=== PATIENT | female | born 1950 | race Caucasian/White ===

== ENCOUNTER 2019-03-21 10:23 | Outpatient (CLI) | payer BC ==
--- NOTE | 2019-03-29 16:20 | MMO ---
Bilateral MAMMO Bilat Screen DDI. CLINICAL HISTORY: Patient is 68 years old and is seen for screening. The patient has no family history of breast cancer. The patient has a history of Skin cancer. VIEWS: The views performed were: bilateral craniocaudal and bilateral mediolateral oblique. FILMS COMPARED: The present examination has been compared to a prior imaging study performed at [facility] on 03/16/2017. This study has been interpreted with the assistance of computer-aided detection. MAMMOGRAM FINDINGS: There are scattered fibroglandular densities. There are stable benign appearing calcifications seen in both breasts. There are also vascular calcifications. There are no suspicious masses, suspicious calcifications, or new areas of architectural distortion. IMPRESSION: THERE IS NO MAMMOGRAPHIC EVIDENCE OF MALIGNANCY. A ROUTINE FOLLOW-UP MAMMOGRAM IN 1 YEAR IS RECOMMENDED. ACR BI-RADS Category 2 - Benign finding MAMMOGRAPHY NOTE: 1. A negative mammogram report should not delay a biopsy if a dominant of clinically suspicious mass is present. 2. Approximately 10% to 15% of breast cancers are not detected by mammography. 3. Adenosis and dense breasts may obscure an underlying neoplasm.
== END 2019-03-21 10:24 | disposition home or self-care (01) ==
LOC: SCSMAMMO 10:23
PROVIDERS: ATTEND Physician Assistant
DX: Z12.31 Encounter for screening mammogram for malignant neoplasm of breast (principal); Z85.828 Personal history of other malignant neoplasm of skin
CPT/HCPCS: 77067

== ENCOUNTER 2019-05-04 09:12 | Outpatient (CLI) | payer BC ==
--- NOTE | 2019-05-04 09:56 | RAD ---
Lumbar spine 2 views HISTORY: Low back pain. FINDINGS: 5 lumbar type vertebrae. Partial sacralization of the fifth lumbar segment mild chronic richy earing decompression of the L3 superior endplate. Disc space narrowing at the L2-3 and L4-5 levels. Grade 1 spondylolisthesis at the L4-5 level. Prominent osteophytosis throughout the lower facets. Rig htward convex rotatory scoliotic curvature on the frontal view. No acute fracture or dislocation. Calcification over the lower abdominal aorta on the lateral view. IMPRESSION: Prominent osseous degenerative changes lumbar spine. No acute osseous abnormalities are d emonstrated. Mild chronic-appearing compression of the L3 superior endplate. Atherosclerosis.
--- NOTE | 2019-05-04 09:57 | RAD ---
Left hip 2 views HISTORY: Left hip pain. FINDINGS: There is mild joint space narrowing, osteophytosis, and subchondral sclerosis. Femoral head contour is maintained. No acute fracture, dislocation, or aggressive osseous erosions. IMPRESSION: Mild osteoarthritic changes left hip. No acute osseous abnormalities are demonstrated.
--- NOTE | 2019-05-04 10:31 | BD ---
DEXA BONE DENSITY STUDY: Date: 05/04/19 COMPARISON: None. HISTORY: 68-year-old postmenopausal female for screening for osteoporosis. FINDINGS: Lumbar Spine: BMD (g/cm2) L1 0.958 T-Score: -0.3 L2 1.046 T-Score: 0.2 L3 1.091 T-Score: 0.1 L4 1.172 T-Score: 1.0 L1-L4 1.065 T-Score: 0.2 Femoral Neck: 0.644 T-Score: -1.8 Total Femur: 0.737 T-Score: -1.7 IMPRESSION: Osteopenia. POS: CET
== END 2019-05-04 09:13 | disposition home or self-care (01) ==
LOC: BICMAMMO 09:12
PROVIDERS: ATTEND Internal Medicine
DX: Z13.820 Encounter for screening for osteoporosis (principal); M51.36 Other intervertebral disc degeneration, lumbar region; M25.552 Pain in left hip; M16.12 Unilateral primary osteoarthritis, left hip; I70.90 Unspecified atherosclerosis; M85.89 Other specified disorders of bone density and structure, multiple sites
CPT/HCPCS: 72100; 77080

== ENCOUNTER 2020-03-25 04:15 | Emergency (ER) | payer BC ==
[2020-03-25] MEDS ORDERED: Ondansetron PF 4 MG/2 ML Vial ONE ×2 (04:25→05:58)
[2020-03-25 04:58] LABS: #Lymphocytes 0.8 thou/uL (1.20-3.40); #Monocytes 0.6 thou/uL (0.11-0.59); #Neutrophils 8.1 thou/uL (1.40-6.50); %Basophils 0.1 % (0.0-1.0); %Eosinophils 0.2 % (0.0-10.0); %Lymphocytes 8.2 % (21.0-51.0); %Neutrophils 85.6 % (42.0-75.0); Hemoglobin 12.1 g/dL (12.0-16.0); Mean Corpuscular HGB CONC 32.9 g/dL (32.0-36.0); Mean Corpuscular Hemoglobin 30.4 pg (27.0-31.0); Mean Corpuscular Volume 92.3 fL (78.0-98.0); Mean Platelet Volume 7.7 fL (7.4-10.4); Platelet Count 190 thou/uL (130-400); RBC Distribution Width 12.2 % (11.5-14.5); Red Blood Cell (RBC) Count 3.99 mill/uL (4.20-5.40); White Blood Cell (WBC) Count 9.5 thou/uL (4.8-10.8)
[2020-03-25 05:19] LABS: ALT (SGPT) 10 U/L (8-55); AST (SGOT) 13 U/L (5-34); Albumin 3.7 g/dL (3.4-4.8); Alkaline Phosphatase 99 U/L (40-110); Anion Gap 16 mmol/L (10-20); BUN (Urea Nitrogen) 17 mg/dL (9.8-20.1); Bilirubin, Total 0.7 mg/dL (0.2-1.2); Calc. Creatinine Clearance 0 mL/min (70-130); Calcium 8.2 mg/dL (7.8-10.44); Carbon Dioxide 22 mmol/L (23-31); Chloride 99 mmol/L (98-107); Estimated GFR-MDRD 51; Globulin 2.9 g/dL (2.4-3.5); Glucose 123 mg/dL (80-115); Lipase 10 U/L (8-78); Protein, Total 6.6 g/dL (6.0-8.3); Sodium 134 mmol/L (136-145)
[2020-03-25 05:24] LABS: Potassium 2.9 mmol/L (3.5-5.1)
[2020-03-25] MEDS ORDERED: Pot Chloride/Pot Bicarb/Cit Ac 25 mEq Effervescent Tablet ONE (05:25)
--- NOTE | 2020-03-25 07:29 | CT ---
CT ABDOMEN AND PELVIS WITH CONTRAST: Date: 03/25/2020 COMPARISON: None. HISTORY: Nausea, vomiting, and diarrhea for 1-1/2 days after eating at [employer]. TECHNIQUE: Multiple contiguous axial images were obtained in a CT of the abdomen and pelvis with contrast. Sagit lazaro and coronal reformats were performed. FINDINGS: The gallbladder is distended without surrounding stranding changes or calcified gallstones. The liver , kidneys, adrenal glands, spleen, and pancreas are unremarkable. No free air, free fluid, or strandi ng changes are seen in the abdomen or pelvis. The patient is status post hysterectomy. The large and small bowel are unremarkable. The appendix is normal. No abdominal or pelvic lymphadenopathy seen. Degenerative changes are seen in the spine. The visualiz ed inferior thorax and abdominal wall soft tissues are unremarkable. IMPRESSION: There is distention of the gallbladder, which may be secondary to a fasting state. Alternatively, the patient could have cholesterol gallstones which are not calcified. If clinically indicated, a right upper quadrant abdominal ultrasound may be necessary to evaluate the gallbladder. No other acute intr a-abdominal/pelvic abnormality is identified. POS: EAA
[2020-03-25] MEDS ORDERED: Iopamidol 370 76% 100 ML VIAL ONE (15:12)
== END 2020-03-25 06:45 | disposition home or self-care (01) ==
LOC: ERS 04:15
DX: R11.2 Nausea with vomiting, unspecified (principal); R19.7 Diarrhea, unspecified; E87.6 Hypokalemia; I10 Essential (primary) hypertension; F32.9 Major depressive disorder, single episode, unspecified; Z79.899 Other long term (current) drug therapy
CPT/HCPCS: 36415; 74177; 80053; 83690; 85025; 96361; 96374; 96376; J2405; Q9967

== ENCOUNTER 2020-03-28 09:31 | Inpatient (IN) | payer BC, OTHER ==
[2020-03-28 10:08] LABS: #Eosinphils 0.1 thou/uL (0.0-0.7); #Lymphocytes 1.1 thou/uL (1.20-3.40); #Monocytes 0.8 thou/uL (0.11-0.59); %Basophils 0.6 % (0.0-1.0); %Eosinophils 1.1 % (0.0-10.0); %Lymphocytes 15.4 % (21.0-51.0); %Monocytes 11.2 % (0.0-10.0); %Neutrophils 71.7 % (42.0-75.0); Hemoglobin 13.7 g/dL (12.0-16.0); Mean Corpuscular HGB CONC 33.3 g/dL (32.0-36.0); Mean Corpuscular Hemoglobin 29.7 pg (27.0-31.0); Mean Corpuscular Volume 89.2 fL (78.0-98.0); Mean Platelet Volume 7.5 fL (7.4-10.4); Platelet Count 280 thou/uL (130-400); RBC Distribution Width 11.9 % (11.5-14.5); Red Blood Cell (RBC) Count 4.61 mill/uL (4.20-5.40)
--- NOTE | 2020-03-28 10:15 | RAD ---
Exam: Chest one view HISTORY:Recent history of nausea and vomiting. Comparison: None FINDINGS: Cardiac silhouette: Normal Aorta: Unremarkable Pulmonary vessels: Normal Costophrenic angles: Clear LUNGS: No masses or consolidation. Pneumothorax: None Osseous abnormalities: None IMPRESSION: No acute cardiopulmonary process.
[2020-03-28 10:30] LABS: ALT (SGPT) 17 U/L (8-55); AST (SGOT) 24 U/L (5-34); Albumin 3.9 g/dL (3.4-4.8); Alkaline Phosphatase 98 U/L (40-110); Anion Gap 19 mmol/L (10-20); BUN (Urea Nitrogen) 8 mg/dL (9.8-20.1); Bilirubin, Total 0.3 mg/dL (0.2-1.2); CK (CPK) 34 U/L (29-168); Calc. Creatinine Clearance 0 mL/min (70-130); Calcium 8.8 mg/dL (7.8-10.44); Carbon Dioxide 23 mmol/L (23-31); Chloride 91 mmol/L (98-107); Estimated GFR-MDRD 76; Globulin 3.2 g/dL (2.4-3.5); Glucose 63 mg/dL (80-115); Lipase 141 U/L (8-78); Magnesium 1.8 mg/dL (1.6-2.6); Protein, Total 7.1 g/dL (6.0-8.3); Sodium 130 mmol/L (136-145)
[2020-03-28 10:32] LABS: Potassium 2.7 mmol/L (3.5-5.1)
[2020-03-28] MEDS ORDERED: Ondansetron PF 4 MG/2 ML Vial ONE (10:50)
[2020-03-28] MEDS ORDERED: Magnesium 2 GM/50 ML BAG (IN WATER) ONE (10:50)
[2020-03-28] MEDS ORDERED: Loperamide HCl 2 MG CAP ONE (10:50)
[2020-03-28] MEDS ORDERED: Acetaminophen 650 MG Suppository PR PRN (11:36)
[2020-03-28] MEDS ORDERED: Calcium Carbonate 500 MG ChewTAB PO PRN (11:36)
[2020-03-28] MEDS ORDERED: Promethazine HCl 25 MG in Sodium Chloride 0.9% 50 ML IVPB PRN (11:42)
[2020-03-28] MEDS ORDERED: Labetalol HCl 100 MG/20 ML VIAL SLOW IVP PRN (11:42)
[2020-03-28] MEDS ORDERED: Potassium Phosphate 30 MMOL in Sodium Chloride 0.9% 250 ML 250 ML IVPB SCH (11:45)
--- NOTE | 2020-03-28 12:41 | PDOC.HHP ---
Hospitalist HPI - History of Present Illness N/V/D x 1 week History of Present Illness: PCP: Vinicio The patient is a 69/F with PMH significant for hypothyroidism, GERD and depression that presents to the ER for the above complaint. The patient reports feeling nauseated with vomiting and diarrhea for the past week. The patient was seen in the ER 3 days ago, CT abdomen was negative for any acute process. She did have hypokalemia, which was replaced and she was discharged home with prescriptions for zofran and lomotil. Reports little improvement of her symptoms, saying "I couldn't hold anything down". She went to see her doctor this morning and was found to have electrolyte abnormalities and was sent to the ER . Reports that her daughter travels frequently for her job, however, admits she has not traveled in past 1- 2 months. She denies any recent travel or hospitalizations. Denies any recent antibiotics or ingestion of uncooked foods. She denies any fever or chills for the past 5 days. Denies any chest pain or heart palpitations. She denies any blood in her stools. Denies any dysuria or blood in urine. ED Course: EKG SR with prolong QT 515 CXR negative WBC 7.0 Na 130 K 2.7 Mg 1.8 lipase 141 Given: 1L NS 40mEq IV and 40mEQ po potassium Mag 2gm IV zofran and loperamide Allergies: NKDA Home medications: Unable to reconcile at bedside with patient Hospitalist ROS - Review of Systems Constitutional: denies: fever, chills Eyes: denies: pain, vision change, conjunctivae inflammation, eyelid inflammation, redness, other ENT: denies: ear pain, ear discharge, nose pain, nose discharge, nose congestion , mouth pain, mouth swelling, throat pain, throat swelling, other Respiratory: denies: cough, dry, shortness of breath, hemoptysis, SOB with excertion, pleuritic pain, sputum, wheezing, other Cardiovascular: denies: chest pain, palpitations, orthopnea, paroxysmal noc. dyspnea, edema, light headedness, other Gastrointestinal: reports: nausea, vomiting, diarrhea. denies: melena, hematochezia Genitourinary: denies: dysuria, frequency, incontinence, hematuria, retention, other Skin: denies: rash, lesions, kevin, bruising, other Neurological: denies: weakness, numbness, incoordination, change in speech, confusion, seizures, other Hospitalist History - Past Medical History Cardiac: reports: Hyperlipidemia Gastrointestinal: reports: GERD Psych: reports: Depression Endocrine: reports: Hypothyroidism - Past Surgical History Past Surgical History: reports: Hysterectomy, Total Knee Replacement, Other ( cervical spine fusion) - Family History Other Family History: non contributory to this case - Social History Smoking Status: Never smoker Alcohol: reports: Occassional Drugs: reports: none Living Situation: With Family Occupation: Lives with family at home, retired Activity level: independent ambulation - Exam General - other findings: uncomfortable, non toxic appearing Eye: anicteric sclera ENT: normocephalic atraumatic Neck: supple, no JVD Heart: RRR, no murmur, no gallops, no rubs, normal peripheral pulses Respiratory: CTAB, no wheezes, no rales, no ronchi, no tachypnea Gastrointestinal: soft, non-tender, normal bowel sounds, no guarding, no rigidity Extremities: no cyanosis, no edema Skin: no lesions, no rashes Neurological: no focal deficits Psychiatric: normal affect, A&O x 3 Hospitalist Results - Labs Result Diagrams: 03/28/20 09:57 03/28/20 09:57 Lab results: WBC 7.0 thou/uL (4.8-10.8) 03/28/20 09:57 Hgb 13.7 g/dL (12.0-16.0) 03/28/20 09:57 Hct 41.1 % (36.0-47.0) 03/28/20 09:57 MCV 89.2 fL (78.0-98.0) 03/28/20 09:57 Plt Count 280 thou/uL (130-400) 03/28/20 09:57 Neutrophils % 71.7 % (42.0-75.0) 03/28/20 09:57 Sodium 130 mmol/L (136-145) L 03/28/20 09:57 Potassium 2.7 mmol/L (3.5-5.1) L* 03/28/20 09:57 Chloride 91 mmol/L (98-107) L 03/28/20 09:57 Carbon Dioxide 23 mmol/L (23-31) 03/28/20 09:57 BUN 8 mg/dL (9.8-20.1) L 03/28/20 09:57 Creatinine 0.76 mg/dL (0.6-1.1) 03/28/20 09:57 Glucose 63 mg/dL (80-115) L 03/28/20 09:57 Calcium 8.8 mg/dL (7.8-10.44) 03/28/20 09:57 Total Bilirubin 0.3 mg/dL (0.2-1.2) 03/28/20 09:57 AST 24 U/L (5-34) 03/28/20 09:57 ALT 17 U/L (8-55) 03/28/20 09:57 Alkaline Phosphatase 98 U/L (40-110) 03/28/20 09:57 Creatine Kinase 34 U/L (29-168) 03/28/20 09:57 Serum Total Protein 7.1 g/dL (6.0-8.3) 03/28/20 09:57 Albumin 3.9 g/dL (3.4-4.8) 03/28/20 09:57 Lipase 141 U/L (8-78) H 03/28/20 09:57 - EKG Interpretation EKG: NSR, prolong QT interval 515 - Radiology Interpretation Chest x-ray Status: report reviewed by nj Hospitalist H&P A/P - Problem (1) Gastroenteritis Code(s): K52.9 - NONINFECTIVE GASTROENTERITIS AND COLITIS, UNSPECIFIED Status : Acute Assessment and Plan: Admit to telemetry floor, observation status. Expected length of stay less than 2 midnights Patient appears uncomfortable, non toxic with benign abdomen on exam Unclear etiology at this time Na 130, K 2.7, Mg 1.8, Glu 63, lipase 131 CT abdomen 2 days prior negative for acute process EKG prolong QT 515 Send stool studies Will start IVF with Dextrose Replace electrolytes Start phenergan scheduled patient monitor Enteric contact precautions (2) Hypokalemia Code(s): E87.6 - HYPOKALEMIA Status: Acute Assessment and Plan: K 2.7 Will replace and recheck in am (3) Low magnesium level Code(s): R79.0 - ABNORMAL LEVEL OF BLOOD MINERAL Status: Acute Assessment and Plan: Relative low magnesium, 1.8 Received 2gm IVPB in ER Will recheck in am (4) Suspected COVID-19 virus infection Code(s): Z20.828 - CONTACT W AND EXPOSURE TO OTH VIRAL COMMUNICABLE DISEASES Status: Acute Assessment and Plan: WBCs WNL, CXR no acute process COVID test pending Check acute phase reactants - CRP, DD and Ferritin, LDH, levels Droplet precautions (5) Hypoglycemia Code(s): E16.2 - HYPOGLYCEMIA, UNSPECIFIED Status: Acute Assessment and Plan: BS 63 Will start D5NS IVF hydration (6) Hypothyroidism Code(s): E03.9 - HYPOTHYROIDISM, UNSPECIFIED Status: Chronic Assessment and Plan: Will restart home levothyroxine when reconciled by nursing (7) Depression Code(s): F32.9 - MAJOR DEPRESSIVE DISORDER, SINGLE EPISODE, UNSPECIFIED Status : Acute Assessment and Plan: stable, will restart home meds when reconciled by nursing. - Plan Plan: Pepcid GI prophylaxis Heparin DVT prophylaxis Full Code MARILYN is spouse, Rafat at [phone] Nunes
[2020-03-28 12:57] LABS: Troponin I Less than 0.010 ng/mL (< 0.028)
[2020-03-28] MEDS: D5 NS w/ 40 mEq KCl 1,000 ML IV SCH (14:28)
[2020-03-28] MEDS: Potassium Chloride 20 MEQ in Premix Bag 1 BAG IVPB SCH ×2 (14:29→16:56)
[2020-03-28 19:40] LABS: SARS-CoV-2 MS2 Positive; SARS-CoV-2 N Gene Negative; SARS-CoV-2 S Gene Negative; SARS-CoV-2 orf1ab Negative
[2020-03-28] MEDS: Heparin 5,000 UNITS/ML VIAL SC SCH (21:51)
[2020-03-28] MEDS: Saccharomyces boulardii 250 MG CAP PO SCH (21:51)
[2020-03-28] MEDS: Famotidine 20 MG TAB PO SCH (21:51)
[2020-03-28] MEDS: Famotidine/PF 20 mg/2ml Vial SLOW IVP SCH (21:51)
[2020-03-29] MEDS: D5 NS w/ 40 mEq KCl 1,000 ML IV SCH ×4 (00:20→17:55)
[2020-03-29] MEDS: ALPRAZolam 0.5 MG TAB PO PRN ×2 (00:27→18:05)
[2020-03-29 05:21] LABS: ALT (SGPT) 11 U/L (8-55); AST (SGOT) 14 U/L (5-34); Albumin 3.2 g/dL (3.4-4.8); Alkaline Phosphatase 74 U/L (40-110); Anion Gap 11 mmol/L (10-20); BUN (Urea Nitrogen) Less than 4 mg/dL (9.8-20.1); Bilirubin, Total 0.2 mg/dL (0.2-1.2); Calc. Creatinine Clearance 85 mL/min (70-130); Calcium 7.9 mg/dL (7.8-10.44); Carbon Dioxide 23 mmol/L (23-31); Chloride 101 mmol/L (98-107); Estimated GFR-MDRD Greater than 90; Globulin 2.5 g/dL (2.4-3.5); Glucose 193 mg/dL (80-115); Lipase 281 U/L (8-78); Magnesium 1.8 mg/dL (1.6-2.6); Potassium 3.7 mmol/L (3.5-5.1); Protein, Total 5.7 g/dL (6.0-8.3); Sodium 131 mmol/L (136-145)
[2020-03-29 05:38] LABS: Phosphorus 1.6 mg/dL (2.3-4.7)
[2020-03-29 06:15] LABS: Band 11 % (5-11); Eosinophils 3 % (0-10); Hemoglobin 11.6 g/dL (12.0-16.0); Lymphocytes 23 % (21-51); MDiff Complete? YES; Mean Corpuscular HGB CONC 33.1 g/dL (32.0-36.0); Mean Corpuscular Hemoglobin 29.5 pg (27.0-31.0); Mean Corpuscular Volume 89.2 fL (78.0-98.0); Mean Platelet Volume 7.3 fL (7.4-10.4); Monocytes 14 % (0-10); Neutrophil 49 % (42-75); Platelet Count 223 thou/uL (130-400); RBC Distribution Width 12.1 % (11.5-14.5); Red Blood Cell (RBC) Count 3.93 mill/uL (4.20-5.40); White Blood Cell (WBC) Count 5.5 thou/uL (4.8-10.8)
[2020-03-29] MEDS ORDERED: Potassium Phosphate 30 MMOL in Sodium Chloride 0.9% 500 ML IVPB SCH (07:30)
[2020-03-29] MEDS: Famotidine 20 MG TAB PO SCH (09:42)
[2020-03-29] MEDS: Heparin 5,000 UNITS/ML VIAL SC SCH ×2 (09:42→20:59)
[2020-03-29] MEDS: Famotidine/PF 20 mg/2ml Vial SLOW IVP SCH (09:43)
[2020-03-29] MEDS: Ondansetron ODT 4 MG TAB PO PRN ×2 (10:48→21:05)
[2020-03-29] MEDS ORDERED: PARoxetine 20 MG TAB PO SCH (11:30)
[2020-03-29] MEDS ORDERED: Bupropion 150 MG XL TAB PO SCH (11:30)
[2020-03-29] MEDS: Loperamide HCl 2 MG CAP PO PRN ×2 (13:23→20:57)
--- NOTE | 2020-03-29 13:23 | PDOC.HOSPP ---
- Subjective Encounter Date: 03/29/20 Encounter Time: 10:45 Subjective: Patient seen and examined for N/V/D with gen weakness. Nausea/Abd pain improving. Still has significant diarrhea. No fever/chills. No overnight events - Objective Vital Signs & Weight: Vital Signs (12 hours) Temp Pulse Resp BP Pulse Ox 03/29/20 11:43 97.7 F 80 16 133/75 98 03/29/20 09:30 97.6 F 81 18 140/82 96 03/29/20 04:03 98 F 80 18 121/79 98 Weight Weight 137 lb I&O: 03/28/20 03/29/20 03/30/20 06:59 06:59 06:59 Intake Total 2309 1120 Output Total 3 4 Balance 2306 1116 Result Diagrams: 03/29/20 04:45 03/29/20 04:45 Additional Labs: Laboratory Tests 03/28/20 03/28/20 03/28/20 09:57 11:50 12:27 Sodium 130 L Potassium 2.7 L* Chloride 91 L Ferritin Lactate Dehydrogenase Troponin I Less than 0.010 C-Reactive Protein COVID-19 PCR Not Detected 03/28/20 03/28/20 03/28/20 12:27 12:27 12:27 Sodium Potassium Chloride Ferritin 180.84 Lactate Dehydrogenase 203 Troponin I C-Reactive Protein 7.62 H COVID-19 PCR Microbiology 03/29/20 01:06 Stool Stool Lactoferrin - Final 03/29/20 01:06 Stool Shiga Toxin Test - Final 03/29/20 01:06 Stool Escherichia coli 0157 Culture - Final 03/29/20 01:06 Stool C. difficile GDH Antigen & Toxins - Final 03/29/20 01:06 Stool Stool Culture - Preliminary Radiology Reviewed by me: Yes (CXR - reviewed) EKG Reviewed by me: Yes (Tele SR - QT ok) Hospitalist ROS - Review of Systems Respiratory: denies: cough, dry, shortness of breath, hemoptysis, SOB with excertion, pleuritic pain, sputum, wheezing, other Cardiovascular: denies: chest pain, palpitations, orthopnea, paroxysmal noc. dyspnea, edema, light headedness, other - Medication Medications: Active Medications Generic Name Dose Route Start Last Admin Trade Name Freq PRN Reason Stop Dose Admin Alprazolam 0.5 mg 03/29/20 00:16 03/29/20 00:27 Xanax PO 0.5 mg BIDPRN PRN Administration Anxiety Calcium Carbonate 1,000 mg 03/28/20 11:36 03/29/20 00:20 Tums PO 1,000 mg Q4H PRN Administration Heartburn or Indigestion Heparin Sodium (Porcine) 5,000 units 03/28/20 21:00 03/29/20 09:42 Heparin SC 5,000 units BID RENZO Administration Potassium Chloride/Dextrose/Sod Cl 1,000 mls @ 125 mls/hr 03/28/20 11:45 10:48 D5 Ns W/ 40 Meq Kcl IV 1,000 mls .Q8H RENZO Administration Potassium Phosphate 30 mmol/ 510 mls @ 85 mls/hr 03/29/20 07:30 03/29/20 09: 42 Sodium Chloride IVPB 03/29/20 13:30 510 mls NOW RENZO Administration Ondansetron HCl 4 mg 03/29/20 10:18 03/29/20 10:48 Zofran Odt PO 4 mg Q6H PRN Administration Nausea/Vomiting Saccharomyces Boulardii 250 mg 03/28/20 21:00 03/28/20 21:51 Florastor PO 250 mg HS RENZO Administration - Exam General Appearance: ill appearing Neck: supple, no JVD Heart: RRR, no gallops Respiratory: no wheezes, no rales Gastrointestinal: soft, non-tender, normal bowel sounds, no guarding, no rigidity Extremities: no cyanosis, no clubbing, no edema Neurological: no new deficit Psychiatric: normal affect, A&O x 3 Hosp A/P - Plan DVT proph w/heparin, DVT proph w/SCDs Acute infective gastroenteritis N/V/D/Abd pain/dehydration/gen weakness - due to above Hypokalemia/Hypophosphatemia/Hyponatremia/Hypomagnesemia Hypoglycemia Hypothyroidism Anxiety PLAN: Cdiff ruled out Stool - WBC positive Cont current IVF with Potassium Replace Phosphorus AM labs Consult GI due to persistent diarrhea COVID negative I discussed case with GI and ID Resume selected home meds
--- NOTE | 2020-03-29 20:00 | CON ---
DATE OF CONSULTATION: 03/29/2020 REQUESTING PHYSICIAN: Dr. Nunes. REASON FOR CONSULTATION: Persistent diarrhea. HISTORY OF PRESENT ILLNESS: Samina May is a very pleasant 69-year-old woman with a history of depression and hypothyroidism as well as a past surgical history of knee replacement and hysterectomy. She reports having undergone colonoscopy in the past multiple times, the last one 3-5 years ago, with benign polyps removed. She has had upper endoscopy in the past with no significant findings. She takes lansoprazole daily for some heartburn, but aside from that, she has no chronic gastrointestinal symptoms. She does not normally have any abdominal pain or diarrhea. Six days ago, she recalls eating breakfast at [facility] and having an omelet that tasted a bit funny; that night, she had a fairly acute onset of cramping generalized abdominal pain followed by profuse watery diarrhea. This progressed to nausea and multiple episodes of emesis and was quite severe for a couple of days. She presented to the emergency department and had a couple of liters of IV fluid, but was felt safe to go home. Over the next several days, she continued to have significant symptoms of intermittent vomiting and watery, uncontrollable diarrhea. The diarrhea has been nonbloody. She was managing it with Zofran and Lomotil p.r.n., but as of yesterday, she was feeling increasingly weak and so presented again for evaluation. She was found to be hypokalemic with potassium 2.7 and so she was admitted to the hospital. Overnight, she has received IV fluid resuscitation, electrolytes have been corrected. She tells me that over the past couple of days, the nausea and vomiting have significantly improved. She is not having any significant abdominal pain at this time, but the diarrhea has persisted. She has had several very watery urgent bowel movements so far today. She does not really have much of an appetite, though she has been tolerating clear liquids today. Stool studies are showing elevated fecal lactoferrin, but are otherwise negative for pathogens to this point. Labs do show an elevation of C-reactive protein, but are otherwise essentially unrevealing, and a CT of the abdomen and pelvis performed on presentation four days ago, was normal. There has been no fever or chest pain with this. COVID testing was negative. REVIEW OF SYSTEMS: Full review of systems including constitutional, head, eyes, ears, nose, throat, GI, , cardiovascular, respiratory, musculoskeletal, neurologic systems are negative except as noted in the HPI. PAST MEDICAL HISTORY: Hypothyroidism, depression, chronic heartburn, total knee replacement, and hysterectomy. ALLERGIES: NO KNOWN DRUG ALLERGIES. OUTPATIENT MEDICATIONS: 1. Potassium chloride 10 mEq daily. 2. Paroxetine. 3. Lansoprazole 30 mg daily. 4. Synthroid. 5. Lasix 20 mg daily. 6. Lipitor. 7. Xanax p.r.n. 8. Bupropion. 9. Lomotil p.r.n. SOCIAL HISTORY: Alcohol use is occasional. No smoking or drug use. Her , Rafat is an Internal Medicine physician, I spoke with him on the phone, his phone #[phone]. FAMILY HISTORY: Negative for GI illness or malignancy. PHYSICAL EXAMINATION: VITAL SIGNS: Temperature 97.7, pulse 80, blood pressure 133/75, and 98% oxygen saturation on room air. GENERAL: A 69-year-old woman, lying in bed comfortably, in no acute distress. She is nontoxic appearing. SKIN: No jaundice. No rashes were palpable. HEENT: Eyes, no scleral icterus. Extraocular movements intact. ENT, mucous membranes moist. No oral lesions. LYMPH: No submandibular or supraclavicular lymphadenopathy. THYROID: Nontender to palpation. HEART: Regular rate and rhythm. LUNGS: Clear to auscultation bilaterally. ABDOMEN: Bowel sounds are present. Soft and nontender to palpation throughout. EXTREMITIES: No peripheral edema. VESSELS: Radial pulses 2+ bilaterally. NEUROLOGIC: Cranial nerves 2 through 12 intact bilaterally. No focal deficits. LABORATORY STUDIES: WBC 5.5, hemoglobin 11.6, platelets 223, MCV 89. Sodium 131, potassium 3.7, BUN less than 4, creatinine 0.63, glucose 193. CRP is elevated to 7.62. Lipase is 281. Troponin negative. Total bilirubin 0.2. Alkaline phosphatase 74, AST 14, ALT 11, and albumin 3.2. COVID PCR was negative. Stool studies show elevated fecal lactoferrin, but stool culture shows only normal moreno. Clostridium difficile antigen and toxin are negative. Campylobacter, Shiga toxin, Cryptosporidium, and Giardia all negative. ASSESSMENT AND PLAN: 1. Acute gastroenteritis, likely infectious, with persistent symptoms x6 days. 2. Diarrhea, persistent for six days. 3. Nausea and vomiting, recently improved. 4. Dehydration, improved today after resuscitation and electrolyte correction. I had a long discussion with the patient as well as her over the phone. Overall, the patient's presentation still seems most consistent with an acute infectious gastroenteritis, particularly given the patient has no history of any chronic GI symptoms at all, the acuity and severity of the onset. Stool studies have been negative for the aforementioned pathogens, but overall I still lean toward an acute infectious process. Less likely, this might represent the onset of inflammatory bowel disease, but with only six days of symptoms so far, the utility of any diagnostic endoscopy would be limited. I would favor continued supportive care as you are doing, IV fluids, antidiarrheals, and antiemetics as needed, and try to advance her diet as tolerated over the next few days. If there is no significant improvement over the next few days, we could always reconsider diagnostic endoscopy. Regardless, she can follow up in the GI Clinic in the coming weeks to discuss surveillance colonoscopy and ensure resolution of symptoms. Thank you for the consultation. Please call at any time with questions or concerns. Job ID: [id number]
[2020-03-29] MEDS: Saccharomyces boulardii 250 MG CAP PO SCH (20:58)
[2020-03-30] MEDS: D5 NS w/ 40 mEq KCl 1,000 ML IV SCH ×3 (04:33→11:23)
[2020-03-30] MEDS: Levothyroxine Sodium 88 MCG TAB PO SCH (06:35)
[2020-03-30 06:45] LABS: Hemoglobin 11.6 g/dL (12.0-16.0); Mean Corpuscular HGB CONC 32.9 g/dL (32.0-36.0); Mean Corpuscular Hemoglobin 29.8 pg (27.0-31.0); Mean Corpuscular Volume 90.6 fL (78.0-98.0); Mean Platelet Volume 7.4 fL (7.4-10.4); Platelet Count 238 thou/uL (130-400); RBC Distribution Width 12.3 % (11.5-14.5); Red Blood Cell (RBC) Count 3.88 mill/uL (4.20-5.40)
[2020-03-30 06:47] LABS: ALT (SGPT) 14 U/L (8-55); AST (SGOT) 16 U/L (5-34); Albumin 3.1 g/dL (3.4-4.8); Alkaline Phosphatase 76 U/L (40-110); Anion Gap 11 mmol/L (10-20); BUN (Urea Nitrogen) Less than 4 mg/dL (9.8-20.1); Bilirubin, Total 0.2 mg/dL (0.2-1.2); Calc. Creatinine Clearance 90 mL/min (70-130); Calcium 8.1 mg/dL (7.8-10.44); Carbon Dioxide 22 mmol/L (23-31); Chloride 104 mmol/L (98-107); Estimated GFR-MDRD Greater than 90; Globulin 2.5 g/dL (2.4-3.5); Glucose 107 mg/dL (80-115); Magnesium 1.5 mg/dL (1.6-2.6); Phosphorus 2.2 mg/dL (2.3-4.7); Potassium 3.9 mmol/L (3.5-5.1); Protein, Total 5.6 g/dL (6.0-8.3); Sodium 133 mmol/L (136-145)
[2020-03-30] MEDS: Bupropion 150 MG XL TAB PO SCH (08:03)
[2020-03-30] MEDS: Loperamide HCl 2 MG CAP PO PRN ×5 (08:04→21:19)
[2020-03-30] MEDS: PARoxetine 20 MG TAB PO SCH (08:04)
[2020-03-30 08:05] LABS: Band 23 % (5-11); Eosinophils 4 % (0-10); Lymphocytes 42 % (21-51); MDiff Complete? YES; Metamyelocyte 1 % (0-0); Monocytes 10 % (0-10); Neutrophil 20 % (42-75)
[2020-03-30] MEDS ORDERED: Magnesium Sulfate 4 GM in Sodium Chloride 0.9% 250 ML 250 ML IVPB SCH (08:15)
[2020-03-30] MEDS: Heparin 5,000 UNITS/ML VIAL SC SCH ×2 (09:37→21:24)
--- NOTE | 2020-03-30 11:22 | PRG ---
DATE OF SERVICE: 03/30/2020 SUBJECTIVE: Ms. May did have several urgent loose bowel movements through the night and this morning. These were nonbloody. She is not having any nausea or abdominal pain. She has felt overall weak, but has been working with PT. Labs are all stable. OBJECTIVE: VITAL SIGNS: Temperature 98.5, pulse 85, blood pressure 132/83, 97% oxygen saturation on room air. GENERAL: No acute distress. HEART: Regular rate and rhythm. LUNGS: Clear to auscultation bilaterally. ABDOMEN: Bowel sounds present. Soft, nontender to palpation. EXTREMITIES: No peripheral edema. LABORATORY STUDIES: Hemoglobin 11.6, WBC 6.0, platelets 238. Sodium 133, potassium 3.9, BUN less than 4, creatinine 0.61, phosphorus 2.2, magnesium 1.5. LFTs all remain normal with total bilirubin 0.2, alkaline phosphatase 76, AST 16, and ALT 14, albumin 3.1, lipase 253. COVID PCR is negative. ASSESSMENT/PLAN: 1. Acute gastroenteritis, likely infectious, with persistent symptoms x7 days. 2. Diarrhea, persistent for 7 days. 3. Nausea and vomiting, appears to have resolved. 4. Dehydration, resolved with adequate fluid resuscitation and electrolyte correction. I reviewed the case with the patient as well as her today. Recommend simply continuing supportive care and awaiting resolution of diarrhea symptoms. Imodium could be used judiciously as needed. We are going to plan to see her back in the GI clinic in the coming weeks to discuss surveillance colonoscopy and ensure resolution of symptoms. Please call back anytime with questions or concerns. Job ID: [id number]
--- NOTE | 2020-03-30 18:06 | PDOC.HOSPP ---
- Subjective Encounter Date: 03/30/20 Encounter Time: 10:20 Subjective: Pt seen for followup re:gastroenteritis. Reports ongoing diarrhea. - Objective Vital Signs & Weight: Vital Signs (12 hours) Temp Pulse Resp BP Pulse Ox 03/30/20 07:27 98.5 F 85 16 132/83 97 Weight Admit Weight 137 lb Weight 140 lb 14.4 oz I&O: 03/29/20 03/30/20 03/31/20 06:59 06:59 06:59 Intake Total 2309 3850 Output Total 3 4 Balance 2306 3846 Result Diagrams: 03/30/20 05:55 03/30/20 05:55 Additional Labs: Labs and MARs reviewed by [facility] Hospitalist ROS - Review of Systems Cardiovascular: denies: chest pain, palpitations, orthopnea, paroxysmal noc. dyspnea, edema, light headedness Gastrointestinal: reports: diarrhea. denies: nausea, vomiting, abdominal pain, constipation, melena, hematochezia - Medication Medications: Active Medications Generic Name Dose Route Start Last Admin Trade Name Freq PRN Reason Stop Dose Admin Alprazolam 0.5 mg 03/29/20 00:16 03/29/20 18:05 Xanax PO 0.5 mg BIDPRN PRN Administration Anxiety Bupropion HCl 300 mg 03/30/20 09:00 03/30/20 08:03 Wellbutrin Xl PO 300 mg DAILY RENZO Administration Calcium Carbonate 1,000 mg 03/28/20 11:36 03/29/20 00:20 Tums PO 1,000 mg Q4H PRN Administration Heartburn or Indigestion Heparin Sodium (Porcine) 5,000 units 03/28/20 21:00 03/30/20 09:37 Heparin SC Not Given BID RENZO Potassium Chloride/Dextrose/Sod Cl 1,000 mls @ 100 mls/hr 03/29/20 15:29 11:23 D5 Ns W/ 40 Meq Kcl IV 1,000 mls .Q10H RENZO Administration Levothyroxine Sodium 88 mcg 03/30/20 06:00 03/30/20 06:35 Synthroid PO 88 mcg 0600 RENZO Administration Loperamide HCl 2 mg 03/29/20 11:12 03/30/20 15:11 Imodium PO 2 mg PRN PRN Administration Diarrhea/Loose Stools Ondansetron HCl 4 mg 03/29/20 10:18 03/29/20 21:05 Zofran Odt PO 4 mg Q6H PRN Administration Nausea/Vomiting Pantoprazole Sodium 40 mg 03/30/20 09:00 03/30/20 08:03 Protonix PO 40 mg DAILY RENZO Administration Paroxetine HCl 30 mg 03/30/20 09:00 03/30/20 08:04 Paxil PO 30 mg DAILY RENZO Administration Saccharomyces Boulardii 250 mg 03/28/20 21:00 03/29/20 20:58 Florastor PO 250 mg HS RENZO Administration - Exam General Appearance: awake alert Eye: anicteric sclera ENT: moist mucosa Neck: supple Heart: RRR Respiratory: CTAB Gastrointestinal: soft, non-tender Extremities: no cyanosis Psychiatric: normal affect, normal behavior Hosp A/P - Plan - Assessment Acute infective gastroenteritis Hyponatremia, mild Hypophosphatemia Hypothyroidism Anxiety Dehydration, resolved - Plan Cdiff ruled out COVID negative Appears to have mildly improved Continue PRN Imodium
[2020-03-30] MEDS: Saccharomyces boulardii 250 MG CAP PO SCH (21:18)
[2020-03-30] MEDS: Ondansetron ODT 4 MG TAB PO PRN (21:19)
[2020-03-30] MEDS: ALPRAZolam 0.5 MG TAB PO PRN (21:19)
[2020-03-31] MEDS: D5 NS w/ 40 mEq KCl 1,000 ML IV SCH ×3 (04:25→16:30)
[2020-03-31] MEDS: Loperamide HCl 2 MG CAP PO PRN ×3 (04:40→15:12)
[2020-03-31] MEDS: Levothyroxine Sodium 88 MCG TAB PO SCH (04:45)
[2020-03-31 05:58] LABS: ALT (SGPT) 21 U/L (8-55); AST (SGOT) 26 U/L (5-34); Albumin 3.1 g/dL (3.4-4.8); Alkaline Phosphatase 90 U/L (40-110); Anion Gap 12 mmol/L (10-20); BUN (Urea Nitrogen) Less than 4 mg/dL (9.8-20.1); Bilirubin, Total 0.2 mg/dL (0.2-1.2); Calc. Creatinine Clearance 85 mL/min (70-130); Calcium 8.4 mg/dL (7.8-10.44); Carbon Dioxide 20 mmol/L (23-31); Chloride 106 mmol/L (98-107); Estimated GFR-MDRD Greater than 90; Globulin 2.8 g/dL (2.4-3.5); Glucose 104 mg/dL (80-115); Lipase 143 U/L (8-78); Magnesium 2.1 mg/dL (1.6-2.6); Phosphorus 2.4 mg/dL (2.3-4.7); Potassium 4.3 mmol/L (3.5-5.1); Protein, Total 5.9 g/dL (6.0-8.3); Sodium 134 mmol/L (136-145)
[2020-03-31 06:11] LABS: Hemoglobin 12.8 g/dL (12.0-16.0); Mean Corpuscular HGB CONC 33.1 g/dL (32.0-36.0); Mean Corpuscular Hemoglobin 30.2 pg (27.0-31.0); Mean Platelet Volume 7.7 fL (7.4-10.4); Platelet Count 298 thou/uL (130-400); RBC Distribution Width 12.5 % (11.5-14.5); Red Blood Cell (RBC) Count 4.23 mill/uL (4.20-5.40); White Blood Cell (WBC) Count 5.8 thou/uL (4.8-10.8)
[2020-03-31 08:20] LABS: Band 5 % (5-11); Eosinophils 3 % (0-10); Lymphocytes 40 % (21-51); MDiff Complete? YES; Monocytes 12 % (0-10); Neutrophil 39 % (42-75)
[2020-03-31] MEDS: Heparin 5,000 UNITS/ML VIAL SC SCH ×2 (09:53→21:02)
[2020-03-31] MEDS: Bupropion 150 MG XL TAB PO SCH (09:54)
[2020-03-31] MEDS: PARoxetine 20 MG TAB PO SCH (10:22)
[2020-03-31] MEDS ORDERED: PARoxetine 20 MG TAB PO SCH (10:30)
--- NOTE | 2020-03-31 12:05 | PRG ---
DATE OF SERVICE: 03/31/2020 SUBJECTIVE: Ms. May is not having any abdominal pain. She has some minimal nausea but no vomiting. Diarrhea has persisted, she has had multiple trips to the restroom so far today, all nonbloody. She feels like the Imodium may be helping slightly. She has remained hemodynamically stable. OBJECTIVE: VITAL SIGNS: Temperature 98.0, pulse 71, blood pressure 111/73, and 97% oxygen saturation on room air. GENERAL: In no acute distress. HEART: Regular rate and rhythm. LUNGS: Clear to auscultation bilaterally. ABDOMEN: Bowel sounds present. Soft. Nontender to palpation. EXTREMITIES: No peripheral edema. LABORATORY STUDIES: All stable with WBC 5.8, hemoglobin 12.8, and platelets 298. Sodium 134, potassium 4.3, BUN less than 4, creatinine 0.65, total bilirubin 0.2, alkaline phosphatase 90, AST 26, ALT 21. Lipase 143. ASSESSMENT AND PLAN: 1. Acute gastroenteritis, likely infectious, despite negative bacterial stool studies here. 2. Diarrhea, persistent x8 days now. 3. Nausea and vomiting, improved. 4. Dehydration, improved. Stick with the plan, continue supportive care and Imodium as needed. Anticipate continued gradual symptomatic improvement. I, again, discussed with her that if we are not seeing much more significant improvement later this week, then diagnostic colonoscopy with biopsies could be considered. Job ID: [id number]
--- NOTE | 2020-03-31 19:02 | CON ---
DATE OF CONSULTATION: 03/31/2020 REASON FOR CONSULTATION: Salmonella gastroenteritis. HISTORY OF PRESENT ILLNESS: A 69-year-old who developed nausea, vomiting, and diarrhea 3 to 4 days before admission. In the emergency room, her pulse was 89 , BP 120/80, respiratory rate 17, O2 saturations were 99, temperature is 98.9. GENERAL: She did not appear in distress. ABDOMEN: Soft, nontender. LABORATORY DATA: Initial values also include white cell count 7.0, hemoglobin 13, platelets 280 with 71% neutrophils and the sodium is 130, creatinine 0.76. Liver profile normal. She had a COVID test, which is negative and a stool culture with Salmonella group C identified with a broad susceptibility profile. Currently, she is still having nonstop diarrhea, the vomiting has improved. No headaches, sore throat, odynophagia, or dysphagia. No back pain. Little bit of arthralgias, which is chronic. No dyspnea or cough. No abdominal pain, although she does have intermittent abdominal cramps. No neurological symptoms. PAST MEDICAL HISTORY: 1. Hypertension. 2. Hypothyroidism. PAST SURGICAL HISTORY: Knee replacements, bilateral C-spine fusion. SOCIAL HISTORY: Drinks weekly. Never smoker. . ALLERGIES: NONE. CURRENT MEDICATION LIST: 1. Tylenol. 2. Xanax. 3. Wellbutrin. 4. Tums. 5. Heparin. 6. Normodyne. 7. Synthroid. 8. Imodium. 9. Zofran. 10. Protonix. 11. Paxil. 12. Florastor. PHYSICAL EXAMINATION: VITAL SIGNS: The T-max is 98.5, blood pressure 140/90, pulse 84, respirations 18, O2 saturation 97%. SKIN: Shows normal findings. No lymphadenopathy. HEENT: Ocular movements conjugate. Oral cavity normal. NECK: Supple. No jugular vein distention. LUNGS: Symmetric air entry. CARDIAC: S1-S2 regular rate. ABDOMEN: Soft with mild tenderness, but no rebound tenderness. No distention or ascites. No organomegaly. No bladder distention, no joint inflammatory activity. NEUROLOGIC: Nonfocal, no edema. Pulses 1+ in dorsalis pedis. Cognitive function appears to be intact. LABORATORY DATA: White cell count 5.8 and 39% neutrophils, 12% monocytes, and creatinine 0.63. ASSESSMENT: Salmonella C gastroenteritis with protracted course and persistence of diarrhea. We will go ahead and start her on quinolone and should expect prompt improvement in the patient's symptoms. Although Salmonella gastroenteritis is for the most part self limited, in her case is still unremitting diarrhea and general malaise. I think she merits treatment. No evidence of distant sites of dissemination at this time. Job ID: [id number] MTDD
[2020-03-31] MEDS: Saccharomyces boulardii 250 MG CAP PO SCH (21:02)
--- NOTE | 2020-03-31 21:07 | PDOC.HOSPP ---
- Subjective Encounter Date: 03/31/20 Encounter Time: 09:00 Subjective: Pt seen for followup re: salmonella gastroenteritis. Still has diarrhea. - Objective Vital Signs & Weight: Vital Signs (12 hours) Temp Pulse Resp BP BP Pulse Ox 03/31/20 19:58 97.9 F 81 20 135/86 97 03/31/20 15:44 98.2 F 84 18 144/90 H 97 Weight Admit Weight 137 lb Weight 140 lb 14.4 oz I&O: 03/30/20 03/31/20 04/01/20 06:59 06:59 06:59 Intake Total 3850 1999 Output Total 4 Balance 3846 1999 Result Diagrams: 03/31/20 05:02 03/31/20 05:02 Additional Labs: Labs and MARs reviewed by sc Hospitalist ROS - Review of Systems Constitutional: reports: weakness. denies: fever, chills, sweats, malaise Gastrointestinal: reports: diarrhea. denies: nausea, vomiting, abdominal pain, constipation, melena, hematochezia - Medication Medications: Active Medications Generic Name Dose Route Start Last Admin Trade Name Freq PRN Reason Stop Dose Admin Alprazolam 0.5 mg 03/29/20 00:16 03/30/20 21:19 Xanax PO 0.5 mg BIDPRN PRN Administration Anxiety Bupropion HCl 300 mg 03/30/20 09:00 03/31/20 09:54 Wellbutrin Xl PO 300 mg DAILY RENZO Administration Calcium Carbonate 1,000 mg 03/28/20 11:36 03/29/20 00:20 Tums PO 1,000 mg Q4H PRN Administration Heartburn or Indigestion Heparin Sodium (Porcine) 5,000 units 03/28/20 21:00 03/31/20 09:53 Heparin SC 5,000 units BID RENZO Administration Potassium Chloride/Dextrose/Sod Cl 1,000 mls @ 100 mls/hr 03/29/20 15:29 16:30 D5 Ns W/ 40 Meq Kcl IV Not Given .Q10H RENZO Levofloxacin 750 mg/ Device 150 mls @ 100 mls/hr 03/31/20 17:00 03/31/20 16: 49 IVPB 150 mls Q24HR RENZO Administration Levothyroxine Sodium 88 mcg 03/30/20 06:00 03/31/20 04:45 Synthroid PO 88 mcg 0600 RENZO Administration Loperamide HCl 2 mg 03/29/20 11:12 03/31/20 15:12 Imodium PO 2 mg PRN PRN Administration Diarrhea/Loose Stools Ondansetron HCl 4 mg 03/29/20 10:18 03/30/20 21:19 Zofran Odt PO 4 mg Q6H PRN Administration Nausea/Vomiting Pantoprazole Sodium 40 mg 03/30/20 09:00 03/31/20 09:58 Protonix PO 40 mg DAILY RENZO Administration Saccharomyces Boulardii 250 mg 03/28/20 21:00 03/30/20 21:18 Florastor PO 250 mg HS RENZO Administration - Exam General Appearance: awake alert Eye: anicteric sclera ENT: moist mucosa Neck: supple Heart: RRR Respiratory: CTAB Gastrointestinal: soft, non-tender Extremities: no cyanosis Psychiatric: normal affect, normal behavior Hosp A/P - Plan - Assessment Salmonella gastroenteritis Hyponatremia, mild Hypophosphatemia Hypothyroidism Anxiety - Plan Salmonella group C in stool culture COVID negative Pt seen by ID service, started on levofloxacin updated, with patient's permission
[2020-03-31] MEDS: Acetaminophen 325 MG TAB PO PRN (21:10)
[2020-03-31] MEDS: ALPRAZolam 0.5 MG TAB PO PRN (21:11)
[2020-04-01] MEDS: Loperamide HCl 2 MG CAP PO PRN ×4 (00:58→20:54)
[2020-04-01] MEDS: D5 NS w/ 40 mEq KCl 1,000 ML IV SCH ×3 (04:18→23:40)
[2020-04-01] MEDS: Levothyroxine Sodium 88 MCG TAB PO SCH (06:44)
[2020-04-01] MEDS: Bupropion 150 MG XL TAB PO SCH (08:12)
[2020-04-01] MEDS: PARoxetine 20 MG TAB PO SCH (08:12)
[2020-04-01] MEDS: Heparin 5,000 UNITS/ML VIAL SC SCH ×2 (08:12→20:43)
[2020-04-01] MEDS: Ondansetron ODT 4 MG TAB PO PRN ×2 (09:27→20:54)
--- NOTE | 2020-04-01 11:46 | PRG ---
DATE OF SERVICE: 04/01/2020 SUBJECTIVE: The patient still has multiple bowel movements, 4 overnight, that is very loose and bilious. She has some mild nausea, but tolerating clear liquids. There is no significant abdominal pain or discomfort. She subjectively feels better. She also looks better according to her . PHYSICAL EXAMINATION: VITAL SIGNS: Temperature is 97.7, blood pressure 109/64, pulse of 71. GENERAL: She is alert, does not appear in any distress. HEENT: Anicteric sclerae. Oropharynx is dry. NECK: Supple. No adenopathy. CV: Normal S1 and S2. Regular rate and rhythm. CHEST: Breath sounds clear to auscultation. ABDOMEN: Soft and flat. No distention. No tympany. She has active bowel sounds. No elicited tenderness. EXTREMITIES: No edema. LABORATORY DATA: WBCs 5.8, hemoglobin 12.8, and platelet count of 298. Electrolytes within normal range. Sodium 134, creatinine is 0.65, and BUN less than 4. LFTs normal. Lipase 143, decreasing. Stool culture; Salmonella group C, sensitive to quinolones. ASSESSMENT: 1. Severe diarrhea with severe dehydration on admission with stool culture showing Salmonella yesterday. The patient was started on Levaquin. There is no evidence of disseminated disease. 2. Severe dehydration on admission, much improved with rehydration. 3. Nausea and vomiting, resolving. RECOMMENDATIONS: 1. Advance to full liquids. 2. Continue Levaquin, expect rapid clinical improvement. Job ID: [id number]
[2020-04-01] MEDS: Acetaminophen 325 MG TAB PO PRN (16:42)
--- NOTE | 2020-04-01 18:53 | PDOC.HOSPP ---
- Subjective Encounter Date: 04/01/20 Encounter Time: :20 Subjective: Pt seen for followup re: enteritis due to Salmonella. Still has diarrhea. - Objective Vital Signs & Weight: Vital Signs (12 hours) Temp Pulse Resp BP Pulse Ox 04/01/20 08:00 98 04/01/20 07:18 97.7 F 71 16 109/64 98 Weight Admit Weight 137 lb Weight 139 lb 2.21 oz I&O: 03/31/20 04/01/20 04/02/20 06:59 06:59 06:59 Intake Total 1999 120 Balance 1999 120 Result Diagrams: 03/31/20 05:02 03/31/20 05:02 Additional Labs: Labs and MARs reviewed by al Hospitalist ROS - Review of Systems Cardiovascular: denies: chest pain, palpitations, orthopnea, paroxysmal noc. dyspnea, edema, light headedness Gastrointestinal: reports: diarrhea. denies: nausea, vomiting, abdominal pain, constipation, melena, hematochezia - Medication Medications: Active Medications Generic Name Dose Route Start Last Admin Trade Name Freq PRN Reason Stop Dose Admin Acetaminophen 650 mg 03/28/20 11:36 04/01/20 16:42 Tylenol PO 650 mg Q4H PRN Administration Headache/Fever/Mild Pain (1-3) Alprazolam 0.5 mg 03/29/20 00:16 03/31/20 21:11 Xanax PO 0.5 mg BIDPRN PRN Administration Anxiety Bupropion HCl 300 mg 03/30/20 09:00 04/01/20 08:12 Wellbutrin Xl PO 300 mg DAILY RENZO Administration Calcium Carbonate 1,000 mg 03/28/20 11:36 03/29/20 00:20 Tums PO 1,000 mg Q4H PRN Administration Heartburn or Indigestion Heparin Sodium (Porcine) 5,000 units 03/28/20 21:00 04/01/20 08:12 Heparin SC 5,000 units BID RENZO Administration Potassium Chloride/Dextrose/Sod Cl 1,000 mls @ 100 mls/hr 03/29/20 15:29 16:41 D5 Ns W/ 40 Meq Kcl IV 1,000 mls .Q10H RENZO Administration Levofloxacin 750 mg/ Device 150 mls @ 100 mls/hr 03/31/20 17:00 04/01/20 16: 41 IVPB 150 mls Q24HR RENZO Administration Levothyroxine Sodium 88 mcg 03/30/20 06:00 04/01/20 06:44 Synthroid PO 88 mcg 0600 RENZO Administration Loperamide HCl 2 mg 03/31/20 21:08 04/01/20 16:42 Imodium PO 2 mg PRN PRN Administration Diarrhea/Loose Stools Ondansetron HCl 4 mg 03/29/20 10:18 04/01/20 09:27 Zofran Odt PO 4 mg Q6H PRN Administration Nausea/Vomiting Pantoprazole Sodium 40 mg 03/30/20 09:00 04/01/20 08:12 Protonix PO 40 mg DAILY RENZO Administration Paroxetine HCl 60 mg 04/01/20 09:00 04/01/20 08:12 Paxil PO 60 mg DAILY RENZO Administration Saccharomyces Boulardii 250 mg 03/28/20 21:00 03/31/20 21:02 Florastor PO 250 mg HS RENZO Administration - Exam General Appearance: awake alert Eye: anicteric sclera ENT: moist mucosa Neck: supple Heart: RRR Respiratory: CTAB Gastrointestinal: soft, non-tender Musculoskeletal: no muscle wasting Psychiatric: normal affect, normal behavior Hosp A/P - Plan - Assessment Salmonella gastroenteritis Hypothyroidism Anxiety Hyponatremia, mild Hypophosphatemia - Plan Continue levofloxacin Continue contact precautions Ambulate pt
[2020-04-01] MEDS: Saccharomyces boulardii 250 MG CAP PO SCH (20:43)
[2020-04-01] MEDS: ALPRAZolam 0.5 MG TAB PO PRN (21:53)
[2020-04-02] MEDS: D5 NS w/ 40 mEq KCl 1,000 ML IV SCH ×3 (04:26→20:11)
[2020-04-02] MEDS: Levothyroxine Sodium 88 MCG TAB PO SCH (05:34)
[2020-04-02] MEDS: Loperamide HCl 2 MG CAP PO PRN ×3 (05:34→20:18)
[2020-04-02] MEDS: Acetaminophen 325 MG TAB PO PRN ×2 (05:37→20:10)
[2020-04-02 06:57] LABS: #Eosinphils 0.2 thou/uL (0.0-0.7); #Lymphocytes 1.9 thou/uL (1.20-3.40); #Monocytes 0.7 thou/uL (0.11-0.59); #Neutrophils 4.4 thou/uL (1.40-6.50); %Basophils 0.4 % (0.0-1.0); %Eosinophils 2.9 % (0.0-10.0); %Lymphocytes 26.8 % (21.0-51.0); %Monocytes 9.4 % (0.0-10.0); %Neutrophils 60.6 % (42.0-75.0); Hemoglobin 11.9 g/dL (12.0-16.0); Mean Corpuscular HGB CONC 32.3 g/dL (32.0-36.0); Mean Corpuscular Hemoglobin 29.5 pg (27.0-31.0); Mean Corpuscular Volume 91.4 fL (78.0-98.0); Mean Platelet Volume 7.3 fL (7.4-10.4); Platelet Count 296 thou/uL (130-400); RBC Distribution Width 12.5 % (11.5-14.5); Red Blood Cell (RBC) Count 4.02 mill/uL (4.20-5.40); White Blood Cell (WBC) Count 7.2 thou/uL (4.8-10.8)
[2020-04-02 07:19] LABS: Anion Gap 11 mmol/L (10-20); BUN (Urea Nitrogen) Less than 4 mg/dL (9.8-20.1); Calc. Creatinine Clearance 83 mL/min (70-130); Calcium 8.2 mg/dL (7.8-10.44); Carbon Dioxide 24 mmol/L (23-31); Chloride 105 mmol/L (98-107); Estimated GFR-MDRD 89; Glucose 108 mg/dL (80-115); Potassium 4.3 mmol/L (3.5-5.1); Sodium 136 mmol/L (136-145)
[2020-04-02] MEDS: Bupropion 150 MG XL TAB PO SCH (08:28)
[2020-04-02] MEDS: Heparin 5,000 UNITS/ML VIAL SC SCH ×2 (08:29→20:12)
[2020-04-02] MEDS: PARoxetine 20 MG TAB PO SCH (08:29)
[2020-04-02] MEDS ORDERED: Cyclobenzaprine 10 MG TAB PO SCH (10:30)
--- NOTE | 2020-04-02 15:41 | PRG ---
DATE OF SERVICE: 04/02/2020 SUBJECTIVE: Feeling better, has not had any more diarrhea or vomiting. She is able to eat breakfast and lunch. OBJECTIVE: LUNGS: Clear. HEART: S1 and S2, regular rate. ABDOMEN: Soft, not distended. EXTREMITIES: Normal. LABORATORY DATA: White blood cell count 7.2, hemoglobin 11.9, creatinine 0.66 ASSESSMENT AND DISCUSSION: Salmonella C gastroenteritis, protracted course, better now on quinolone. We will transition to oral quinolone and discharge planning soon. Job ID: [id number] [facility]
--- NOTE | 2020-04-02 17:22 | PRG ---
DATE OF SERVICE: 04/02/2020 SUBJECTIVE: Ms. May has had no bowel movement since last night. No abdominal pain. She is tolerating clear liquids well. OBJECTIVE: VITAL SIGNS: Temperature 97.7, pulse 72, blood pressure 99/57. GENERAL: She is in no acute distress. Alert and oriented x3. HEENT: Eyes have no scleral icterus. Oropharynx is clear without lesions. No cervical or supraclavicular lymphadenopathy. LUNGS: Clear to auscultation bilaterally. HEART: Regular rate and rhythm without murmur. ABDOMEN: Soft, nontender, and nondistended. Bowel sounds are present. EXTREMITIES: No lower extremity edema. Recheck blood pressure is 126/84. LABORATORY DATA: White blood cell count 7.2, hemoglobin 11.9, platelets 296, creatinine 0.66. IMPRESSION: Salmonella gastroenteritis. She is clinically improving on levofloxacin. She is being changed to oral dosing. RECOMMENDATIONS: 1. Advance to a vegetarian diet. 2. She can likely complete a 5 to 7 day course of the quinolone. Dr. Cartagena is following. 3. I will sign off for now. Please call if GI can be of assistance. Job ID: [id number]
--- NOTE | 2020-04-02 17:28 | PDOC.HOSPP ---
- Subjective Encounter Date: 04/02/20 Encounter Time: 10:20 Subjective: Pt seen for followup re: salmonella enteritis. Feels better today. - Objective Vital Signs & Weight: Vital Signs (12 hours) Temp Pulse Resp BP BP Pulse Ox 04/02/20 08:41 126/84 04/02/20 07:29 97.7 F 72 16 99/57 L 97 Weight Admit Weight 137 lb Weight 140 lb 9 oz I&O: 04/01/20 04/02/20 04/03/20 06:59 06:59 06:59 Intake Total 120 Balance 120 Result Diagrams: 04/02/20 06:32 04/02/20 06:32 Additional Labs: Labs and MARs reviewed by [place] Hospitalist ROS - Review of Systems Gastrointestinal: reports: diarrhea. denies: nausea, vomiting, abdominal pain, constipation, melena, hematochezia Genitourinary: denies: dysuria, frequency, incontinence, hematuria, retention - Medication Medications: Active Medications Generic Name Dose Route Start Last Admin Trade Name Freq PRN Reason Stop Dose Admin Acetaminophen 650 mg 03/28/20 11:36 04/02/20 05:37 Tylenol PO 650 mg Q4H PRN Administration Headache/Fever/Mild Pain (1-3) Alprazolam 0.5 mg 03/29/20 00:16 04/01/20 21:53 Xanax PO 0.5 mg BIDPRN PRN Administration Anxiety Bupropion HCl 300 mg 03/30/20 09:00 04/02/20 08:28 Wellbutrin Xl PO 300 mg DAILY RENZO Administration Calcium Carbonate 1,000 mg 03/28/20 11:36 03/29/20 00:20 Tums PO 1,000 mg Q4H PRN Administration Heartburn or Indigestion Heparin Sodium (Porcine) 5,000 units 03/28/20 21:00 04/02/20 08:29 Heparin SC 5,000 units BID RENZO Administration Potassium Chloride/Dextrose/Sod Cl 1,000 mls @ 100 mls/hr 03/29/20 15:29 08:28 D5 Ns W/ 40 Meq Kcl IV Not Given .Q10H RENZO Levothyroxine Sodium 88 mcg 03/30/20 06:00 04/02/20 05:34 Synthroid PO 88 mcg 0600 RENZO Administration Loperamide HCl 2 mg 03/31/20 21:08 04/02/20 08:28 Imodium PO 2 mg PRN PRN Administration Diarrhea/Loose Stools Ondansetron HCl 4 mg 03/29/20 10:18 04/01/20 20:54 Zofran Odt PO 4 mg Q6H PRN Administration Nausea/Vomiting Pantoprazole Sodium 40 mg 03/30/20 09:00 04/02/20 08:28 Protonix PO 40 mg DAILY RENZO Administration Paroxetine HCl 60 mg 04/01/20 09:00 04/02/20 08:29 Paxil PO 60 mg DAILY RENZO Administration Saccharomyces Boulardii 250 mg 03/28/20 21:00 04/01/20 20:43 Florastor PO 250 mg HS RENZO Administration - Exam General Appearance: awake alert Eye: anicteric sclera ENT: moist mucosa Neck: supple Heart: RRR Respiratory: CTAB Gastrointestinal: soft, non-tender Psychiatric: normal affect, normal behavior Hosp A/P - Plan continue antibiotics, out of bed/ambulate - Assessment Salmonella gastroenteritis Anxiety Hypothyroidism Hyponatremia, mild Hypophosphatemia - Plan Diarrhea improving, continue levofloxacin Continue contact precautions Ambulate pt Advance diet
[2020-04-02] MEDS: Cyclobenzaprine 10 MG TAB PO PRN (20:09)
[2020-04-02] MEDS: Saccharomyces boulardii 250 MG CAP PO SCH (20:11)
[2020-04-02] MEDS: Ondansetron ODT 4 MG TAB PO PRN (20:18)
[2020-04-03] MEDS: D5 NS w/ 40 mEq KCl 1,000 ML IV SCH ×3 (02:09→16:11)
[2020-04-03] MEDS: Levothyroxine Sodium 88 MCG TAB PO SCH (05:48)
[2020-04-03 05:56] LABS: #Basophils 0.1 thou/uL (0.0-0.2); #Eosinphils 0.3 thou/uL (0.0-0.7); #Lymphocytes 2.3 thou/uL (1.20-3.40); #Monocytes 0.6 thou/uL (0.11-0.59); #Neutrophils 4.6 thou/uL (1.40-6.50); %Monocytes 7.8 % (0.0-10.0); %Neutrophils 58.2 % (42.0-75.0); Hemoglobin 11.5 g/dL (12.0-16.0); Mean Corpuscular HGB CONC 30.7 g/dL (32.0-36.0); Mean Corpuscular Volume 91.2 fL (78.0-98.0); Mean Platelet Volume 7.1 fL (7.4-10.4); Platelet Count 305 thou/uL (130-400); RBC Distribution Width 12.5 % (11.5-14.5); White Blood Cell (WBC) Count 7.9 thou/uL (4.8-10.8)
[2020-04-03 06:16] LABS: Anion Gap 9 mmol/L (10-20); BUN (Urea Nitrogen) Less than 4 mg/dL (9.8-20.1); Calc. Creatinine Clearance 82 mL/min (70-130); Carbon Dioxide 27 mmol/L (23-31); Chloride 105 mmol/L (98-107); Estimated GFR-MDRD 88; Glucose 100 mg/dL (80-115); Potassium 4.1 mmol/L (3.5-5.1); Sodium 137 mmol/L (136-145)
[2020-04-03] MEDS: Bupropion 150 MG XL TAB PO SCH (08:50)
[2020-04-03] MEDS: PARoxetine 20 MG TAB PO SCH (08:51)
[2020-04-03] MEDS: Heparin 5,000 UNITS/ML VIAL SC SCH ×2 (08:52→20:06)
[2020-04-03] MEDS: Atorvastatin Calcium 20 MG TAB PO SCH (08:56)
[2020-04-03] MEDS: Ondansetron ODT 4 MG TAB PO PRN (11:13)
[2020-04-03] MEDS: Cyclobenzaprine 10 MG TAB PO PRN ×2 (11:19→20:06)
[2020-04-03 14:06] VITALS: BMI 23.3
--- NOTE | 2020-04-03 17:54 | PDOC.HOSPP ---
- Subjective Encounter Date: 04/03/20 Encounter Time: 10:40 Subjective: Pt seen for followup re: Salmonella infection. c/o diarrhea, but slowly improving. - Objective Vital Signs & Weight: Vital Signs (12 hours) Temp Pulse Resp BP Pulse Ox 04/03/20 08:45 98 04/03/20 07:01 98 F 75 17 124/83 98 Weight Admit Weight 137 lb Weight 140 lb 9 oz I&O: 04/02/20 04/03/20 04/04/20 06:59 06:59 06:59 Intake Total 120 1950 Balance 120 1950 Result Diagrams: 04/03/20 05:47 04/03/20 05:47 Additional Labs: Labs and MARs reviewed by [place] Hospitalist ROS - Review of Systems Constitutional: reports: weakness. denies: fever, chills, sweats, malaise Cardiovascular: denies: chest pain, palpitations, orthopnea, paroxysmal noc. dyspnea, edema, light headedness Gastrointestinal: reports: diarrhea. denies: nausea, vomiting, abdominal pain, constipation, melena, hematochezia Neurological: reports: weakness - Medication Medications: Active Medications Generic Name Dose Route Start Last Admin Trade Name Freq PRN Reason Stop Dose Admin Acetaminophen 650 mg 03/28/20 11:36 04/02/20 20:10 Tylenol PO 650 mg Q4H PRN Administration Headache/Fever/Mild Pain (1-3) Alprazolam 0.5 mg 03/29/20 00:16 04/01/20 21:53 Xanax PO 0.5 mg BIDPRN PRN Administration Anxiety Atorvastatin Calcium 20 mg 04/03/20 09:00 04/03/20 08:56 Lipitor PO 20 mg DAILY RENZO Administration Bupropion HCl 300 mg 03/30/20 09:00 04/03/20 08:50 Wellbutrin Xl PO 300 mg DAILY RENZO Administration Calcium Carbonate 1,000 mg 03/28/20 11:36 03/29/20 00:20 Tums PO 1,000 mg Q4H PRN Administration Heartburn or Indigestion Cyclobenzaprine HCl 10 mg 04/02/20 10:26 04/03/20 11:19 Flexeril PO 10 mg TID PRN Administration Muscle Spasm Heparin Sodium (Porcine) 5,000 units 03/28/20 21:00 05/28/20 08:52 Heparin SC 5,000 units BID RENZO Administration Potassium Chloride/Dextrose/Sod Cl 1,000 mls @ 100 mls/hr 03/29/20 15:29 16:11 D5 Ns W/ 40 Meq Kcl IV Not Given .Q10H RENZO Levofloxacin 750 mg 04/02/20 20:00 04/02/20 20:09 Levaquin PO 750 mg 2000 RENZO Administration Levothyroxine Sodium 88 mcg 03/30/20 06:00 04/03/20 05:48 Synthroid PO 88 mcg 0600 RENZO Administration Loperamide HCl 2 mg 03/31/20 21:08 04/02/20 20:18 Imodium PO 2 mg PRN PRN Administration Diarrhea/Loose Stools Ondansetron HCl 4 mg 03/29/20 10:18 04/03/20 11:13 Zofran Odt PO 4 mg Q6H PRN Administration Nausea/Vomiting Pantoprazole Sodium 40 mg 03/30/20 09:00 04/03/20 08:51 Protonix PO 40 mg DAILY RENZO Administration Paroxetine HCl 60 mg 04/01/20 09:00 04/03/20 08:51 Paxil PO 60 mg DAILY RENZO Administration Saccharomyces Boulardii 250 mg 03/28/20 21:00 04/02/20 20:11 Florastor PO 250 mg HS RENZO Administration - Exam General Appearance: awake alert Eye: anicteric sclera ENT: moist mucosa Neck: supple, symmetric Heart: RRR, no rubs Respiratory: CTAB Gastrointestinal: soft, non-tender Skin: no rashes Neurological: cranial nerve grossly intact Musculoskeletal: no muscle wasting Psychiatric: normal affect, normal behavior Hosp A/P - Plan - Assessment Salmonella gastroenteritis Hypothyroidism Anxiety Hyponatremia, mild Hypophosphatemia - Plan Diarrhea improving slowly Continue Levaquin Continue contact precautions Ambulate pt Advance diet
[2020-04-03] MEDS: Saccharomyces boulardii 250 MG CAP PO SCH (20:06)
[2020-04-03] MEDS: Acetaminophen 325 MG TAB PO PRN (20:06)
[2020-04-04] MEDS: D5 NS w/ 40 mEq KCl 1,000 ML IV SCH (01:00)
[2020-04-04] MEDS: Levothyroxine Sodium 88 MCG TAB PO SCH (05:21)
[2020-04-04 05:47] LABS: #Basophils 0.1 thou/uL (0.0-0.2); #Eosinphils 0.2 thou/uL (0.0-0.7); #Lymphocytes 2.4 thou/uL (1.20-3.40); #Monocytes 0.7 thou/uL (0.11-0.59); #Neutrophils 5.2 thou/uL (1.40-6.50); %Basophils 0.8 % (0.0-1.0); %Eosinophils 2.7 % (0.0-10.0); %Lymphocytes 28.3 % (21.0-51.0); %Monocytes 7.9 % (0.0-10.0); %Neutrophils 60.2 % (42.0-75.0); Hemoglobin 11.4 g/dL (12.0-16.0); Mean Corpuscular HGB CONC 31.4 g/dL (32.0-36.0); Mean Corpuscular Hemoglobin 29.1 pg (27.0-31.0); Mean Corpuscular Volume 92.5 fL (78.0-98.0); Mean Platelet Volume 7.1 fL (7.4-10.4); Platelet Count 271 thou/uL (130-400); RBC Distribution Width 12.4 % (11.5-14.5); Red Blood Cell (RBC) Count 3.91 mill/uL (4.20-5.40); White Blood Cell (WBC) Count 8.6 thou/uL (4.8-10.8)
[2020-04-04 06:05] LABS: Anion Gap 10 mmol/L (10-20); BUN (Urea Nitrogen) 7 mg/dL (9.8-20.1); Calc. Creatinine Clearance 82 mL/min (70-130); Calcium 8.1 mg/dL (7.8-10.44); Carbon Dioxide 27 mmol/L (23-31); Chloride 105 mmol/L (98-107); Estimated GFR-MDRD 88; Glucose 103 mg/dL (80-115); Potassium 4.2 mmol/L (3.5-5.1); Sodium 138 mmol/L (136-145)
[2020-04-04] MEDS: Bupropion 150 MG XL TAB PO SCH (08:31)
[2020-04-04] MEDS: Heparin 5,000 UNITS/ML VIAL SC SCH (08:31)
[2020-04-04] MEDS: PARoxetine 20 MG TAB PO SCH (08:32)
[2020-04-04] MEDS: Atorvastatin Calcium 20 MG TAB PO SCH (08:32)
[2020-04-04 09:28] VITALS: BP 115/78; TEMP 97.8
--- NOTE | 2020-04-04 13:13 | DIS ---
DATE OF ADMISSION: 03/28/2020 DATE OF DISCHARGE: 04/04/2020 PRIMARY CARE PROVIDER: Ilana Mooney MD DISCHARGE DIAGNOSES: 1. Salmonella enteritis. 2. Dehydration. 3. Hyponatremia. 4. Hypokalemia. 5. Hypoalbuminemia. CONDITION: Condition of the patient on the day of discharge: Stable. I assessed Ms. May on the day of discharge. She denies any chest pain or shortness of breath. Diarrhea has resolved. Vital signs are stable. S1 and S2 are heard, regular. Lungs are clear to auscultation bilaterally. CONSULTATIONS DURING THIS HOSPITALIZATION: 1. Gastroenterology, Dr. Hawkins. 2. Infectious Diseases, Dr. Cartagena. HOSPITAL COURSE: Ms. May is a pleasant 69-year-old lady, who was admitted to [facility] on March 28, 2020, for diarrhea and dehydration. She was seen by Gastroenterology Service. Clostridium difficile test was negative. Stool lactoferrin was elevated. Campylobacter and Shiga toxin tests were negative. Giardia and Cryptosporidium tests were negative as well. Stool cultures grew Salmonella group C susceptible to ampicillin, ciprofloxacin, levofloxacin, and Bactrim. She was seen by Infectious Diseases Service and started on levofloxacin. She improved clinically. She is being discharged home in a stable condition. DISCHARGE MEDICATIONS: Her home medications were resumed and she has been started on levofloxacin 750 mg daily for 6 more days and Florastor 250 mg daily for 6 more days, to complete a 10-day course per ID Service recommendation. POST-ACUTE CARE FOLLOWUP: With primary care provider in 3 days. DIET: Heart healthy. ACTIVITY: No restrictions. DISCHARGE DESTINATION: Home. TIME SPENT: Total amount of time spent in coordinating this discharge: 20 minutes. Job ID: [id number]
[2020-04-05 06:12] LABS: Norovirus GI Negative (Negative); Norovirus GII Negative (Negative)
== END 2020-04-04 12:24 | disposition home or self-care (01) | DRG 372 ==
LOC: ERS 09:31 → 2SW 11:38 → OBSVTOIN 11:38 → T4-B 03-29 16:17
PROVIDERS: ADMIT Internal Medicine; ATTEND Internal Medicine
DX: A02.0 Salmonella enteritis (principal); E87.0 Hyperosmolality and hypernatremia; Z20.828 Contact with and (suspected) exposure to other viral communicable diseases; I10 Essential (primary) hypertension; E03.9 Hypothyroidism, unspecified; F32.9 Major depressive disorder, single episode, unspecified; E87.6 Hypokalemia; F41.9 Anxiety disorder, unspecified; K21.9 Gastro-esophageal reflux disease without esophagitis; Z96.652 Presence of left artificial knee joint; E78.5 Hyperlipidemia, unspecified; E83.42 Hypomagnesemia; E16.2 Hypoglycemia, unspecified; E86.0 Dehydration; E88.09 Other disorders of plasma-protein metabolism, not elsewhere classified; E83.39 Other disorders of phosphorus metabolism; Z98.1 Arthrodesis status; Z79.899 Other long term (current) drug therapy; Z90.49 Acquired absence of other specified parts of digestive tract; Z79.890 Hormone replacement therapy
CPT/HCPCS: 36415; 71045; 74177; 80048; 80053; 82550; 82728; 83615; 83630; 83690; 83735; 84100; 84484; 85025; 85379; 86140; 87045; 87046; 87077; 87186; 87324; 87328; 87329; 87427; 87449; 87635; 87798; 93005; 94760; 96361; 96365; 96367; 96374; 96375; 96376; J1644; J1956; J2405; J2550; J3475; J3480; J7030; J7050; Q0162; Q9967; U0003

== ENCOUNTER 2020-04-21 13:23 | Inpatient (IN) | payer BC, OTHER ==
[2020-04-21 14:03] LABS: Hemoglobin 11.4 g/dL (12.0-16.0); Mean Corpuscular HGB CONC 32.6 g/dL (32.0-36.0); Mean Corpuscular Hemoglobin 29.4 pg (27.0-31.0); Mean Corpuscular Volume 90.1 fL (78.0-98.0); Mean Platelet Volume 7.1 fL (7.4-10.4); Platelet Count 233 thou/uL (130-400); RBC Distribution Width 12.4 % (11.5-14.5); Red Blood Cell (RBC) Count 3.87 mill/uL (4.20-5.40); White Blood Cell (WBC) Count 11.7 thou/uL (4.8-10.8)
[2020-04-21 14:21] LABS: ALT (SGPT) 10 U/L (8-55); AST (SGOT) 15 U/L (5-34); Albumin 3.6 g/dL (3.4-4.8); Alkaline Phosphatase 108 U/L (40-110); Anion Gap 14 mmol/L (10-20); BUN (Urea Nitrogen) 12 mg/dL (9.8-20.1); Bilirubin, Total 0.8 mg/dL (0.2-1.2); Calc. Creatinine Clearance 0 mL/min (70-130); Calcium 8.6 mg/dL (7.8-10.44); Carbon Dioxide 22 mmol/L (23-31); Chloride 99 mmol/L (98-107); Estimated GFR-MDRD 76; Globulin 2.8 g/dL (2.4-3.5); Glucose 98 mg/dL (80-115); Lipase 100 U/L (8-78); Potassium 3.6 mmol/L (3.5-5.1); Protein, Total 6.4 g/dL (6.0-8.3); Sodium 131 mmol/L (136-145)
[2020-04-21] MEDS ORDERED: Acetaminophen 325 MG TAB ONE (14:22)
[2020-04-21] MEDS ORDERED: Ondansetron PF 4 MG/2 ML Vial ONE ×2 (14:22→20:06)
[2020-04-21 14:24] LABS: Band 13 % (5-11); Lymphocytes 9 % (21-51); MDiff Complete? YES; Neutrophil 78 % (42-75); Platelet Morphology Comment Appears Adequate; Polychromasia SLIGHT = 2-3 cells (100X) (0-2/hpf)
[2020-04-21 15:02] LABS: Bilirubin Negative (Negative); Blood, Urine Negative (Negative); Clarity Clear (Clear); Glucose, Urine (Dipstick) Normal (Negative); Leukocyte Negative Leu/uL (Negative); Nitrite Negative (Negative); Protein, Urine (Dipstick) Negative (Neg-Trace); Urobilinogen Normal mg/dL (Less than 2)
[2020-04-21] MEDS ORDERED: Fentanyl 100 MCG/2 ML VIAL ONE (15:25)
[2020-04-21] MEDS ORDERED: Promethazine HCl 25 MG/ML VIAL ONE (15:25)
[2020-04-21] MEDS ORDERED: Ibuprofen 200 MG TAB ONE (16:06)
--- NOTE | 2020-04-21 16:31 | ULT ---
GALLBLADDER ULTRASOUND: HISTORY: Right upper quadrant abdominal pain FINDINGS: The liver demonstrates homogeneous echotexture without focal mass or intrahepatic biliary ductal dila tation. The gallbladder is distended with small amount of sludge. No gallstones, gallbladder wall thickening or pericholecystic fluid are seen. The right kidney and visualized portions of the pancreas are normal. The common duct [id number] in diameter. No free fluid is seen in the Lazo's pouch. IMPRESSION: Gallbladder distention with small amount of sludge
[2020-04-21 17:59] LABS: CRP (Inflammatory) 5.99 mg/dL (= or < 0.5); Magnesium 1.5 mg/dL (1.6-2.6)
[2020-04-21] MEDS ORDERED: Piperacillin/Tazobactam 4.5 GM VIAL ONE (18:14)
[2020-04-21] MEDS ORDERED: Norepinephrine 8 MG/0.9% NS 250 ML ONE (18:18)
[2020-04-21] MEDS ORDERED: Magnesium Sulfate 4 GM in Sodium Chloride 0.9% 250 ML 250 ML IVPB SCH (18:30)
[2020-04-21] MEDS ORDERED: Vancomycin 1 GM/200 ML BAG ONE (18:44)
--- NOTE | 2020-04-21 19:06 | RAD ---
Chest AP view INDICATION: Emergency examination chest pain COMPARISON: March 28, 2020 FINDINGS: Lungs: There is new airspace opacity within the left lower lobe suspicious for pneumonia. Cardiac silhouette: The cardiomediastinal silhouette appears within normal limits. Pulmonary vasculature: Normal Pleural spaces: No pleural effusion or pneumothorax is demonstrated. Upper abdomen: No abnormality seen. Osseous structures: Stable ACDF of the lower cervical spine. Additional findings: There is a left subclavian central venous catheter that has been intervally mathieu eric. IMPRESSION: 1. New airspace opacity in left lower lobe suspicious for pneumonia. Recommend radiographic follow to resolution. 2. Left-sided subclavian central venous catheter. No pneumothorax
--- NOTE | 2020-04-21 19:15 | PDOC.HHP ---
Hospitalist HPI - History of Present Illness Nausea, vomiting History of Present Illness: Patient with recent admission to the hospital for treatment of nausea, vomiting , diarrhea due to possible Salmonella presents back to the emergency department for evaluation of fever, chills, malaise, nausea, dry heaving and general sense of malaise. Tells me that after being discharged from the hospital she never felt back to her baseline. Her diarrhea did resolve after completing course of ABX. Presently refers mild cramping and nausea but denies actual abdominal pain or vomiting. She reports decreased appetite with poor oral intake and feeling of "dehydration." Denies other symptoms such as shortness of breath or cough. In the ED she is noted to be hypotensive and toxic appearing. X-ray reveals possible infiltrate. She denies any recent sick contacts. Tells me she has been staying at home and has been following measures to prevent COVID19 such as staying at home, distancing, mask. Initial ED evaluation reveals fever & hypotension. Labs reveals leukocytosis 14 with bandemia. Hypokalemia of 2.9. Hypomagnesemia of 1.5. Normal lactic acid. Chest x-ray reveals possible infiltrate suggestive of PNA. ED Course: Received IVFs per sepsis protocol. Started on Vasopressors. Broad spectrum ABX initiated. Hospitalist ROS - Review of Systems Constitutional: reports: fever, chills, weakness, malaise Eyes: denies: vision change ENT: denies: throat pain, throat swelling Respiratory: denies: cough, shortness of breath, hemoptysis, SOB with excertion , sputum Cardiovascular: denies: chest pain, palpitations Gastrointestinal: reports: nausea, abdominal pain. denies: vomiting, diarrhea, melena, hematochezia Genitourinary: denies: dysuria, frequency, incontinence Neurological: reports: weakness Hospitalist History - Past Medical History Psych: reports: Depression Endocrine: reports: Hypothyroidism - Past Surgical History Past Surgical History: reports: Hysterectomy, Total Knee Replacement, Other ( cervical spine fusion) - Social History Alcohol: reports: Occassional Drugs: reports: none Occupation: Lives with family at home, retired - Exam General Appearance: ill appearing Eye: PERRL ENT: normocephalic atraumatic, dry oral mucosa Neck: supple, no JVD Heart: RRR Respiratory: CTAB, no wheezes, no ronchi Gastrointestinal: soft, non-tender, non-distended, normal bowel sounds Gastrointestinal - other findings: Rather benign abdominal exam Extremities: no cyanosis, no edema Neurological: cranial nerve grossly intact Musculoskeletal: normal tone Psychiatric: normal affect Hospitalist Results - Labs Result Diagrams: 04/21/20 20:00 04/21/20 20:00 Lab results: WBC 11.7 thou/uL (4.8-10.8) H 04/21/20 13:48 Hgb 11.4 g/dL (12.0-16.0) L 04/21/20 13:48 Hct 34.9 % (36.0-47.0) L 04/21/20 13:48 MCV 90.1 fL (78.0-98.0) 04/21/20 13:48 Plt Count 233 thou/uL (130-400) 04/21/20 13:48 Band Neuts % (Manual) 13 % (5-11) H 04/21/20 13:48 Sodium 131 mmol/L (136-145) L 04/21/20 13:48 Potassium 3.6 mmol/L (3.5-5.1) 04/21/20 13:48 Chloride 99 mmol/L (98-107) 04/21/20 13:48 Carbon Dioxide 22 mmol/L (23-31) L 04/21/20 13:48 BUN 12 mg/dL (9.8-20.1) 04/21/20 13:48 Creatinine 0.76 mg/dL (0.6-1.1) 04/21/20 13:48 Glucose 98 mg/dL (80-115) 04/21/20 13:48 Lactic Acid 0.7 mmol/L (0.5-2.2) 04/21/20 14:08 Calcium 8.6 mg/dL (7.8-10.44) 04/21/20 13:48 Total Bilirubin 0.8 mg/dL (0.2-1.2) 04/21/20 13:48 AST 15 U/L (5-34) 04/21/20 13:48 ALT 10 U/L (8-55) 04/21/20 13:48 Alkaline Phosphatase 108 U/L (40-110) 04/21/20 13:48 C-Reactive Protein 5.99 mg/dL (= or < 0.5) H 04/21/20 17:01 Serum Total Protein 6.4 g/dL (6.0-8.3) 04/21/20 13:48 Albumin 3.6 g/dL (3.4-4.8) 04/21/20 13:48 Lipase 100 U/L (8-78) H 04/21/20 13:48 Urine Ketones 20 mg/dL (Negative) A 04/21/20 14:43 Urine Blood Negative (Negative) 04/21/20 14:43 Urine Nitrite Negative (Negative) 04/21/20 14:43 Ur Leukocyte Esterase Negative Yves/uL (Negative) 04/21/20 14:43 Hospitalist H&P A/P - Plan Plan: Problem List 1. Possible health care associated pneumonia 2. Septic shock 3. Dehydration 4. Electrolyte abnormality Assessment and Plan 1. Possible health care associated pneumonia - admit patient critical care for close monitoring - recent admission to the hospital for possible Salmonellosis s/p treatment - presents back with fever, malaise, leukocytosis/bandemia, possible infiltrate on x-ray - start patient on broad spectrum ABX: Zosyn plus Vanc per pharmacy protocol - blood cultures obtained - received IVFs per sepsis protocol, continue with generous resuscitation - continue with Levephed for MAP > 65 - pulmonary cc & infectious disease consults in AM 2. Septic shock - hypotension despite aggressive IVF resuscitation - continue with Levophed for MAP > 65 - IV ABX per PNA plan - monitor hemodynamics closely 3. Dehydration - no further diarrhea or vomiting but very poor appetite and decreased oral intake - continue with IVFs 4. Electrolyte abnormality - hypokalemia & hypomagnesemia - monitor and replace PRN DVT PPX: Lovenox FULL CODE
[2020-04-21] MEDS ORDERED: Norepinephrine 8 MG/0.9% NS 250 ML IVPB SCH (20:00)
[2020-04-21 20:07] LABS: Hemoglobin 10.7 g/dL (12.0-16.0); Mean Corpuscular HGB CONC 33.7 g/dL (32.0-36.0); Mean Corpuscular Hemoglobin 30.6 pg (27.0-31.0); Mean Corpuscular Volume 90.7 fL (78.0-98.0); Mean Platelet Volume 7.4 fL (7.4-10.4); Platelet Count 219 thou/uL (130-400); RBC Distribution Width 12.7 % (11.5-14.5); Red Blood Cell (RBC) Count 3.48 mill/uL (4.20-5.40)
[2020-04-21] MEDS ORDERED: Magnesium 2 GM/50 ML BAG (IN WATER) ONE (20:13)
[2020-04-21 20:25] LABS: Band 27 % (5-11); Lymphocytes 6 % (21-51); MDiff Complete? YES; Metamyelocyte 3 % (0-0); Monocytes 1 % (0-10); Neutrophil 62 % (42-75); Platelet Morphology Comment Appears Adequate; Polychromasia SLIGHT = 2-3 cells (100X) (0-2/hpf)
[2020-04-21 20:28] LABS: ALT (SGPT) 8 U/L (8-55); AST (SGOT) 11 U/L (5-34); Albumin 2.9 g/dL (3.4-4.8); Alkaline Phosphatase 86 U/L (40-110); Anion Gap 11 mmol/L (10-20); BUN (Urea Nitrogen) 11 mg/dL (9.8-20.1); Bilirubin, Total 0.6 mg/dL (0.2-1.2); Calc. Creatinine Clearance 0 mL/min (70-130); Calcium 7.4 mg/dL (7.8-10.44); Carbon Dioxide 21 mmol/L (23-31); Chloride 107 mmol/L (98-107); Estimated GFR-MDRD 75; Globulin 2.2 g/dL (2.4-3.5); Glucose 136 mg/dL (80-115); Protein, Total 5.1 g/dL (6.0-8.3); Sodium 136 mmol/L (136-145)
[2020-04-21 20:32] LABS: Potassium 2.9 mmol/L (3.5-5.1)
[2020-04-21] MEDS ORDERED: metroNIDAZOLE 500 MG/100 ML BAG ONE (20:36)
[2020-04-21 21:20] VITALS: BMI 22.2
[2020-04-21] MEDS: Piperacillin/Tazobactam 4.5 GM in Sodium Chloride 0.9% 100 ML IVPB SCH (23:10)
[2020-04-21] MEDS: Famotidine/PF 20 mg/2ml Vial SLOW IVP SCH (23:10)
[2020-04-21] MEDS: D5 0.9% NS w/ 20 mEq KCl 1,000 ML IV SCH (23:24)
[2020-04-21] MEDS ORDERED: ELECTROLYTE REPLACEMENT PROTOCOL FS PRN (23:25)
[2020-04-21] MEDS: Sodium Chloride 0.9% 1,000 ML IV SCH (23:25)
[2020-04-21] MEDS ORDERED: PHOS-NAK 1 PKT PACK PO PRN ×2 (23:25)
[2020-04-21] MEDS ORDERED: Potassium Phosphate 15 MMOL in Sodium Chloride 0.9% 250 ML 250 ML IV PRN (23:25)
[2020-04-21] MEDS ORDERED: Potassium Chloride 20 MEQ TAB PO PRN (23:25)
[2020-04-21] MEDS ORDERED: Potassium Phosphate 12 MMOL in Sodium Chloride 0.9% 250 ML 250 ML IV PRN (23:25)
[2020-04-21] MEDS ORDERED: Potassium Phosphate 9 MMOL in Sodium Chloride 0.9% 100 ML IVPB PRN (23:25)
[2020-04-21] MEDS ORDERED: Magnesium Oxide 400 MG TAB PO PRN ×2 (23:25)
[2020-04-21] MEDS ORDERED: Magnesium 2 GM/50 ML 2 GM in Premix Bag 1 BAG IVPB PRN (23:25)
[2020-04-21] MEDS ORDERED: Potassium Chloride 40 MEQ in Sodium Chloride 0.9% 250 ML 250 ML IVPB PRN (23:25)
[2020-04-21] MEDS: Potassium Chloride 40 MEQ in Premix Bag 1 BAG IVPB PRN (23:41)
[2020-04-21] MEDS: Promethazine HCl 25 MG/ML VIAL SLOW IVP PRN (23:54)
[2020-04-22] MEDS: D5 0.9% NS w/ 20 mEq KCl 1,000 ML IV SCH ×3 (02:26→16:02)
[2020-04-22] MEDS: Sodium Chloride 0.9% 1,000 ML IV SCH ×3 (02:26→16:02)
[2020-04-22] MEDS: Acetaminophen 325 MG TAB PO PRN ×2 (03:22→10:17)
[2020-04-22] MEDS: Ondansetron PF 4 MG/2 ML Vial IVP PRN (03:22)
[2020-04-22 05:23] LABS: Band 55 % (5-11); Hemoglobin 10.8 g/dL (12.0-16.0); Hypochromia SLIGHT = 6-15 cells (100X) (0-5/hpf); Lymphocytes 4 % (21-51); MDiff Complete? YES; Mean Corpuscular HGB CONC 31.8 g/dL (32.0-36.0); Mean Corpuscular Hemoglobin 29.1 pg (27.0-31.0); Mean Corpuscular Volume 91.5 fL (78.0-98.0); Mean Platelet Volume 7.2 fL (7.4-10.4); Monocytes 3 % (0-10); Neutrophil 38 % (42-75); Platelet Count 267 thou/uL (130-400); Platelet Morphology Comment Appears Adequate; RBC Distribution Width 12.9 % (11.5-14.5); White Blood Cell (WBC) Count 17.1 thou/uL (4.8-10.8)
[2020-04-22 05:27] LABS: ALT (SGPT) 8 U/L (8-55); AST (SGOT) 11 U/L (5-34); Albumin 2.9 g/dL (3.4-4.8); Alkaline Phosphatase 88 U/L (40-110); Anion Gap 8 mmol/L (10-20); BUN (Urea Nitrogen) 9 mg/dL (9.8-20.1); Bilirubin, Total 0.3 mg/dL (0.2-1.2); Calc. Creatinine Clearance 73 mL/min (70-130); Calcium 7.5 mg/dL (7.8-10.44); Carbon Dioxide 22 mmol/L (23-31); Chloride 113 mmol/L (98-107); Estimated GFR-MDRD 81; Globulin 2.4 g/dL (2.4-3.5); Glucose 178 mg/dL (80-115); Magnesium 1.8 mg/dL (1.6-2.6); Potassium 3.6 mmol/L (3.5-5.1); Protein, Total 5.3 g/dL (6.0-8.3); Sodium 139 mmol/L (136-145)
[2020-04-22 05:30] LABS: Phosphorus 1.7 mg/dL (2.3-4.7)
[2020-04-22] MEDS: Piperacillin/Tazobactam 4.5 GM in Sodium Chloride 0.9% 100 ML IVPB SCH ×4 (06:39→23:24)
[2020-04-22] MEDS: Levothyroxine Sodium 88 MCG TAB PO SCH (06:39)
--- NOTE | 2020-04-22 07:57 | RAD ---
EXAM: Single view of the chest HISTORY: Sepsis COMPARISON: 04/21/2020 FINDINGS: Single view of the chest shows a normal sized cardiomediastinal silhouette. The central ve nous catheter is unchanged in position. There is no evidence of consolidation, mass, or pleural effusion. Hardware is seen in the cervical spine. Degenerative changes are seen in the thoracic spine . IMPRESSION: No evidence of acute cardiopulmonary disease
[2020-04-22] MEDS: Promethazine HCl 25 MG/ML VIAL SLOW IVP PRN ×2 (08:25→14:12)
[2020-04-22] MEDS: Enoxaparin Sodium 40 MG/0.4 ML SYRINGE SC SCH (08:26)
[2020-04-22] MEDS: Famotidine/PF 20 mg/2ml Vial SLOW IVP SCH ×2 (08:26→23:25)
[2020-04-22] MEDS: Vancomycin HCl 750 MG in Sodium Chloride 0.9% 250 ML 250 ML IVPB SCH ×2 (08:26→23:24)
[2020-04-22] MEDS ORDERED: Potassium Phosphate 30 MMOL in Sodium Chloride 0.9% 250 ML 250 ML IVPB SCH (08:45)
[2020-04-22] MEDS ORDERED: Iopamidol-370 76% 500 ML 1 ML ONE (09:42)
[2020-04-22 13:43] LABS: Troponin I 0.025 ng/mL (< 0.028)
--- NOTE | 2020-04-22 15:42 | CON ---
DATE OF CONSULTATION: 04/22/2020 HISTORY OF PRESENT ILLNESS: Samina May is a 69-year-old female, who is readmitted to the hospital with nausea but no vomiting, and marked weakness. She was hypotensive in the ER, blood pressure was 96/64. She was given fluids and started on Levophed, she is in the ICU, reason for consult. at the bedside who states that recent diagnosis of Salmonella was made at the end of March. She was feeling better until over the last several weeks, she started getting weak. There is no blood in the stools. There is no chest pain. There is no shortness of breath. PAST MEDICAL HISTORY: Pertinent mainly for hypertension and hypothyroidism. PAST SURGICAL HISTORY: Otherwise, included knee replacement, spinal fusion, and hysterectomy. TOBACCO: None. ALCOHOL: Minimal. HOME MEDICATIONS: 1. Xanax 0.5. 2. Lasix 20. 3. Atorvastatin 20. 4. Levothyroxine 88. 5. Oxybutynin 5. 6. Protonix 30. 7. Zofran p.r.n. ALLERGIES: NONE. REVIEW OF SYSTEMS: Ten-point negative. PHYSICAL EXAMINATION: VITAL SIGNS: Blood pressure 100/60, she is Levophed; saturations 99%, respiratory rate 18, pulse 80. GENERAL: Awake, alert, and responsive. CHEST: Reveals no wheezing or crackles. CARDIAC: Normal S1, S2. No gallops. ABDOMEN: No masses. LABORATORY DATA: White count 17,000, H and H 10 and 33, platelet count 267, she has a big left shift with 55 bands. Lytes are normal. ASSESSMENT: Abdominal sepsis, previous Salmonella, sensitive to ampicillin, Cipro, Levaquin, and sulfa. PLAN: We will restart medications specific for Salmonella. Otherwise, continue supportive care. Cortisol is being ordered. Hydration. We will follow while in the ICU. TIME SPENT: This is a 70-minute consultation note, 50% direct patient care. Job ID: [id number]
[2020-04-22 17:17] LABS: Troponin I 0.028 ng/mL (< 0.028)
--- NOTE | 2020-04-22 17:41 | EKG ---
Test Reason : Blood Pressure : / mmHG Vent. Rate : 094 BPM Atrial Rate : 094 BPM P-R Int : 124 ms QRS Dur : 090 ms QT Int : 386 ms P-R-T Axes : 045 043 045 degrees QTc Int : 482 ms Normal sinus rhythm Normal ECG When compared with ECG of 28-MAR-2020 10:05, No significant change was found Confirmed by DR. Merry PONCE ([id number]) on 04/22/2020 5:41:09 PM Referred By: JOHNATHAN Confirmed By:DR. Merry PONCE
--- NOTE | 2020-04-22 19:36 | PDOC.HOSPP ---
- Subjective Encounter Date: 04/22/20 Encounter Time: 19:36 Subjective: Pt seen for followup re: diarrhea. c/o diarrhea, generalized weakness. - Objective Vital Signs & Weight: Vital Signs (12 hours) Pulse Ox 04/22/20 08:00 99 Weight Admit Weight 133 lb 13.129 oz Weight 133 lb 13.129 oz Most Recent Monitor Data Heart Rate from ECG 93 NIBP 111/65 NIBP BP-Mean 80 Respiration from ECG 39 SpO2 95 I&O: 04/21/20 04/22/20 04/23/20 06:59 06:59 06:59 Intake Total 2068 82160 Output Total 800 2210 Balance 1268 85680 Result Diagrams: 04/22/20 04:50 04/22/20 04:50 Additional Labs: Labs and MARs reviewed by me EKG Reviewed by me: Yes (Tele: NSR) Hospitalist ROS - Review of Systems Constitutional: reports: weakness. denies: fever, chills, sweats, malaise Respiratory: denies: cough, shortness of breath, SOB with excertion, pleuritic pain, wheezing Cardiovascular: denies: chest pain, palpitations, orthopnea, paroxysmal noc. dyspnea, edema, light headedness Gastrointestinal: reports: nausea, diarrhea. denies: vomiting, abdominal pain, constipation, melena, hematochezia Genitourinary: denies: dysuria, frequency, incontinence, hematuria, retention - Medication Medications: Active Medications Generic Name Dose Route Start Last Admin Trade Name Freq PRN Reason Stop Dose Admin Acetaminophen 650 mg 04/21/20 19:47 04/22/20 10:17 Tylenol PO 650 mg Q4H PRN Administration Headache/Fever/Mild Pain (1-3) Enoxaparin Sodium 40 mg 04/22/20 09:00 04/22/20 08:26 Lovenox SC 40 mg 0900 RENZO Administration Famotidine 20 mg 04/21/20 21:00 04/22/20 08:26 Pepcid SLOW IVP 20 mg Q12HR RENZO Administration Potassium Chloride/Dextrose/Sod Cl 1,000 mls @ 150 mls/hr 04/21/20 18:00 16:02 D5 0.9% Ns W/ 20 Meq Kcl IV Not Given .Q6H40M RENZO Sodium Chloride 1,000 mls @ 150 mls/hr 04/21/20 20:00 04/22/20 16:02 Normal Saline 0.9% IV 1,000 mls .Q6H40M RENZO Administration Piperacillin Sod/Tazobactam 100 mls @ 200 mls/hr 04/21/20 23:59 04/22/20 17: 04 Sod 4.5 gm/ Sodium Chloride IVPB 100 mls Q6HR RENZO Administration Vancomycin HCl 750 mg/ Sodium 250 mls @ 250 mls/hr 04/22/20 08:00 04/22/20 08 :26 Chloride IVPB 250 mls 0800,2000 RENZO Administration Potassium Chloride 40 meq/ 100 mls @ 50 mls/hr 04/21/20 23:25 04/21/20 23:41 Device IVPB 100 mls ASDIR PRN Administration FOR SERUM K+ 2.5 - 3.5 Potassium Phosphate 9 mmol/ 103 mls @ 25.75 mls/hr 04/21/20 23:25 04/22/20 06 :39 Sodium Chloride IVPB 103 mls ASDIR PRN Administration Phosphate 1.0-1.8 Levothyroxine Sodium 88 mcg 04/22/20 06:00 04/22/20 06:39 Synthroid PO 88 mcg 0600 RENZO Administration Ondansetron HCl 4 mg 04/21/20 19:47 04/22/20 03:22 Zofran IVP 4 mg Q6H PRN Administration Nausea/Vomiting Promethazine HCl 12.5 mg 04/21/20 23:45 04/22/20 14:12 Phenergan SLOW IVP 12.5 mg Q6H PRN Administration Nausea Sodium Chloride 10 ml 04/22/20 09:00 04/22/20 08:26 Flush - Normal Saline IVF 10 ml Q12HR RENZO Administration - Exam General Appearance: ill appearing Eye: anicteric sclera ENT: normocephalic atraumatic, moist mucosa Neck: supple, symmetric, no thyromegaly, no lymphadenopathy Heart: RRR, no gallops, no rubs, normal peripheral pulses Respiratory: CTAB, no wheezes, no rales, no ronchi, normal chest expansion Gastrointestinal: soft, non-tender, non-distended, normal bowel sounds Skin: no rashes Psychiatric: normal affect, normal behavior, oriented to person, oriented to place Hosp A/P - Plan Assessment 1. Diarrhea 2. Health care associated pneumonia 3. Dehydration 4. Electrolyte abnormality 5. Septic shock, resolved Plan 1. Diarrhea -await stool studies -IV fluids -recently treated for Salmonella diarrhea 2. Possible health care associated pneumonia - continue IV Zosyn/IV vancomycin - blood cultures obtained, follow - Continue IV fluids 3. Dehydration - continue with IV fluids 4. Electrolyte abnormality - hypokalemia & hypomagnesemia resolved - Replace phosphorus today 5. Septic shock - Resolved, pt is off of pressors. DVT PPX: Lovenox FULL CODE
[2020-04-22 21:12] LABS: ALT (SGPT) 9 U/L (8-55); AST (SGOT) 15 U/L (5-34); Albumin 2.6 g/dL (3.4-4.8); Alkaline Phosphatase 87 U/L (40-110); Anion Gap 9 mmol/L (10-20); BUN (Urea Nitrogen) 5 mg/dL (9.8-20.1); Bilirubin, Total 0.2 mg/dL (0.2-1.2); Calc. Creatinine Clearance 79 mL/min (70-130); Carbon Dioxide 19 mmol/L (23-31); Chloride 111 mmol/L (98-107); Estimated GFR-MDRD 89; Globulin 2.3 g/dL (2.4-3.5); Glucose 94 mg/dL (80-115); Magnesium 1.6 mg/dL (1.6-2.6); Phosphorus 2.5 mg/dL (2.3-4.7); Potassium 3.2 mmol/L (3.5-5.1); Protein, Total 4.9 g/dL (6.0-8.3); Sodium 136 mmol/L (136-145)
--- NOTE | 2020-04-22 21:56 | CT ---
CT ABDOMEN AND PELVIS WITH IV CONTRAST 04/22/2020 CLINICAL INFORMATION: Right lower quadrant abdominal pain. Marked bandemia. COMPARISON: 03/25/2020 Technique: Multiple contiguous axial CT images are obtained through the abdomen and pelvis with IV contrast. Cor onal reformatted images are provided. FINDINGS: Lower Chest: Tiny bilateral pleural effusions are seen with linear and patchy parenchymal densities a t each lung base probably attributable to atelectasis. Vessels: Vascular calcifications are seen in the abdominal aorta and involving the iliac arteries. Abdomen: Portal vein:Patent Gallbladder: Distended measuring 5.4 cm in diameter, but this is similar to the prior exam. However, there is suggestion of a small amount of adjacent fluid. Liver: Suggestion of mild periportal edema which may related to volume status. Spleen: within normal limits. Pancreas: within normal limits. Adrenals: within normal limits. Kidneys: within normal limits. Bowel: There is diffuse colonic wall thickening with pericolonic inflammatory changes as well as flui d in each paracolic gutter greater on the right. Findings are suggestive of colitis, and findings may be related to pseudomembranous colitis. A few small colonic diverticula are seen involving the de scending colon. Loops of small bowel are normal in caliber. Appendix: The appendix is visualized and normal in caliber. Peritoneum/Retroperitoneum: Small amount of free fluid is seen in the pelvis and in the right paracol ic gutter. No fluid collection is seen, and there are no enlarged lymph nodes seen by CT size criteria. Abdominal Wall: Mild subcutaneous edema seen in the lateral flank regions bilateral appreciably thick ened. No clinical concern, right upper quadrant ultrasound may be helpful. Rally as well as in the gluteal regions. Pelvis: Reproductive Organs: Uterus is not visualized likely related to hysterectomy. Pelvis within normal limits. Bladder: within normal limits. Bones: Degenerative changes are seen in the spine, and there is stable grade 1 anterolisthesis of L4 on L5. There are prominent Schmorl's nodes seen in the superior endplates of the L3 and L4 vertebral bodies. IMPRESSION: 1. Diffuse and prominent colonic wall thickening with adjacent pericolonic inflammatory changes. Find ings are most compatible with colitis. While this could be infectious or inflammatory in etiology, findings may be attributable to pseudomembranous colitis. 2. Distention of the gallbladder. This was also present on the prior exam. There is small amount of f luid adjacent to the gallbladder, but this could be secondary to the adjacent inflammatory changes and fluid associated with the colon. However, pathology related to cholecystitis cannot be entirely e xcluded based on this exam. Gallbladder wall does not appear thickened. Gallbladder ultrasound may be helpful for further evaluation. 3. Small amount of ascites. 4. Tiny bilateral pleural effusions with patchy bibasilar densities probably attributable to atelecta sis.
[2020-04-22] MEDS: Potassium Chloride 40 MEQ in Premix Bag 1 BAG IVPB PRN (23:27)
--- NOTE | 2020-04-23 00:08 | CON ---
DATE OF CONSULTATION: 04/22/2020 REASON FOR CONSULTATION: Diarrhea, abdominal cramps. HISTORY OF PRESENT ILLNESS: A 69-year-old whom I had seen recently at the end of last month when she presented with a history of hypertension, hypothyroidism, new onset of nausea, vomiting, and diarrhea 3 to 4 days before admission, had a negative COVID test and she has had positive salmonella stool culture group C. The patient initially was observed because of persistence of symptoms. She was treated with quinolone and improved rapidly, was discharged home on 04/04. On 04/30, she was noted to have a critical lab value with a potassium of 2.7 and PCP sent her for COVID rule out. She was having vomiting and diarrhea and she was given loperamide, ondansetron, potassium, and abdominal examination was felt to be benign, so she was admitted. She was released and then developed nausea and vomiting recurrence with diarrhea. In the note from the emergency room, it is stated that the bowel movement was normal, but now she is having diarrhea again. It looks like she has pain in the right lower quadrant of her abdomen. She has some headaches. No visual symptoms, sore throat, odynophagia, or dysphagia. No cough or sputum production or chest pain. No dyspnea. No back pain. No joint symptoms. No skin disorder. PAST MEDICAL HISTORY: Hypothyroidism, hypertension, TMJ, Salmonella C and gastroenteritis, knee replacements, C-spine fusion. SOCIAL HISTORY: No smoking. Lives with family at home. ALLERGIES: NONE. CURRENT MEDICATIONS: 1. Lovenox. 2. Pepcid. 3. Synthroid. 4. Magnesium. 5. Levophed. 6. Zosyn. 7. Vancomycin. FAMILY HISTORY: Noncontributory. PHYSICAL EXAMINATION: VITAL SIGNS: T-max 99.5, blood pressure 112/77, pulse 91, O2 saturation 93-96. SKIN: Normal. She has peripheral IV access and she is voiding in the diapers. No lymphadenopathy. HEENT: Ocular movements conjugate. Oral cavity not remarkable. NECK: Supple. LUNGS: Symmetric, clear breath sounds. S1-S2 regular rate. ABDOMEN: Not distended, but there is moderate tenderness in the right lower quadrant on percussion. No ascites. No organomegaly. No bladder distention. No joint inflammatory activity. Moves extremities equally. No edema. Alert and oriented. Follows commands. LABORATORY DATA: White cell count is at 17.1, hemoglobin 10.8, platelets 267 with 38% neutrophils and 55% bands. Sodium 139, creatinine 0.72. Liver profile normal. Albumin 2.9. Urinalysis normal. We have 2 sets of negative blood cultures thus far. There is a negative C diff from 03/29. ASSESSMENT: Hypertension, recent episode of Salmonella C gastroenteritis with improvement, recrudescence of diarrhea, abdominal tenderness. DISCUSSION: Differential diagnosis includes recurrence of Salmonella gastroenteritis versus C difficile colitis or an alternate inflammatory process in the bowel. Salmonella can sometimes be associated with rupture of bowel wall. We will go ahead and repeat abdomen and pelvis CT to be done with oral and IV contrast. Continue antimicrobial therapy. Stool exam for C difficile and Salmonella testing, stool cultures and other assays in the stool. Monitor . Job ID: [id number] MTDD
[2020-04-23] MEDS: Sodium Chloride 0.9% 1,000 ML IV SCH ×5 (00:15→17:15)
[2020-04-23] MEDS: Acetaminophen 325 MG TAB PO PRN ×2 (00:15→21:15)
[2020-04-23] MEDS: Ondansetron PF 4 MG/2 ML Vial IVP PRN ×2 (00:15→10:37)
[2020-04-23] MEDS: D5 0.9% NS w/ 20 mEq KCl 1,000 ML IV SCH (00:16)
[2020-04-23] MEDS: Vancomycin HCl 25 MG/ML Oral PO SCH ×5 (00:17→23:11)
[2020-04-23 05:44] LABS: Band 16 % (5-11); Eosinophils 5 % (0-10); Hemoglobin 9.3 g/dL (12.0-16.0); Lymphocytes 11 % (21-51); MDiff Complete? YES; Mean Corpuscular HGB CONC 32.3 g/dL (32.0-36.0); Monocytes 4 % (0-10); Neutrophil 64 % (42-75); Platelet Count 178 thou/uL (130-400); Platelet Morphology Comment Appears Adequate; RBC Distribution Width 12.8 % (11.5-14.5); Red Blood Cell (RBC) Count 3.11 mill/uL (4.20-5.40)
[2020-04-23 05:47] LABS: ALT (SGPT) 9 U/L (8-55); AST (SGOT) 14 U/L (5-34); Albumin 2.4 g/dL (3.4-4.8); Alkaline Phosphatase 83 U/L (40-110); Anion Gap 9 mmol/L (10-20); BUN (Urea Nitrogen) 4 mg/dL (9.8-20.1); Bilirubin, Total Less than 0.2 mg/dL (0.2-1.2); Calc. Creatinine Clearance 87 mL/min (70-130); Calcium 7.1 mg/dL (7.8-10.44); Carbon Dioxide 19 mmol/L (23-31); Chloride 111 mmol/L (98-107); Estimated GFR-MDRD Greater than 90; Globulin 2.2 g/dL (2.4-3.5); Glucose 77 mg/dL (80-115); Potassium 3.2 mmol/L (3.5-5.1); Protein, Total 4.6 g/dL (6.0-8.3); Sodium 136 mmol/L (136-145)
[2020-04-23] MEDS: Piperacillin/Tazobactam 4.5 GM in Sodium Chloride 0.9% 100 ML IVPB SCH ×2 (06:51→11:40)
[2020-04-23] MEDS: Potassium Chloride 40 MEQ in Premix Bag 1 BAG IVPB PRN (06:52)
[2020-04-23] MEDS: Levothyroxine Sodium 88 MCG TAB PO SCH (06:53)
[2020-04-23] MEDS: Enoxaparin Sodium 40 MG/0.4 ML SYRINGE SC SCH (08:26)
[2020-04-23] MEDS: Famotidine/PF 20 mg/2ml Vial SLOW IVP SCH ×2 (08:27→20:14)
--- NOTE | 2020-04-23 08:50 | PRG ---
DATE OF SERVICE: 04/23/2020 SUBJECTIVE: She is better this morning. She is weak. OBJECTIVE: VITAL SIGNS: Blood pressure 125/78, sats are 97%, respiratory rate 18. Less diarrhea. CHEST: Decreased breath sounds, no wheezing. CARDIAC: Normal S1, S2. No gallops. LABORATORY DATA: Potassium 3.2, otherwise lytes are normal. White count 13,000. Stool positive for C diff. ASSESSMENT: Clostridium difficile colitis; hypertension, resolved; severe deconditioning. She can probably be transferred out of the ICU. At this stage, she is on p.o. vancomycin, IV vancomycin and Zosyn. I would deescalate antibiotics, probably leave her just on p.o. vancomycin. Input from GI. Job ID: [id number]
[2020-04-23] MEDS ORDERED: Saccharomyces boulardii 250 MG CAP PO SCH (10:00)
[2020-04-23 11:25] LABS: Vancomycin, Trough 6.4 ug/mL
[2020-04-23] MEDS ORDERED: Vancomycin HCl 750 MG in Sodium Chloride 0.9% 250 ML 250 ML IVPB SCH (12:00)
[2020-04-23] MEDS: ALPRAZolam 0.5 MG TAB PO PRN (15:55)
--- NOTE | 2020-04-23 18:44 | PDOC.HOSPP ---
- Subjective Encounter Date: 04/23/20 Encounter Time: 08:40 Subjective: Pt seen for followup re: c. difficile colitis. Feels better. Diarrhea still + , but improved. - Objective Vital Signs & Weight: Vital Signs (12 hours) Temp Pulse Resp BP Pulse Ox 04/23/20 17:17 99.2 F 93 18 128/80 98 04/23/20 12:20 97.8 F 86 18 115/79 99 04/23/20 12:00 97.8 F 04/23/20 07:37 96 Weight Admit Weight 133 lb 13.129 oz Weight 133 lb 13.129 oz Most Recent Monitor Data Heart Rate from ECG 86 NIBP 117/74 NIBP BP-Mean 88 Respiration from ECG 30 SpO2 98 I&O: 04/22/20 04/23/20 04/24/20 06:59 06:59 06:59 Intake Total 2068 00886 1850 Output Total 800 2617 900 Balance 1268 04905 950 Result Diagrams: 04/23/20 04:45 04/23/20 04:45 Additional Labs: Labs and MARs reviewed by me EKG Reviewed by me: Yes (Tele: NSR) Hospitalist ROS - Review of Systems Cardiovascular: denies: chest pain, palpitations, orthopnea, paroxysmal noc. dyspnea, edema, light headedness Gastrointestinal: reports: diarrhea. denies: nausea, vomiting, abdominal pain, constipation, melena, hematochezia - Medication Medications: Active Medications Generic Name Dose Route Start Last Admin Trade Name Freq PRN Reason Stop Dose Admin Acetaminophen 650 mg 04/21/20 19:47 04/23/20 00:15 Tylenol PO 650 mg Q4H PRN Administration Headache/Fever/Mild Pain (1-3) Alprazolam 0.5 mg 04/23/20 15:14 04/23/20 15:55 Xanax PO 0.5 mg BIDPRN PRN Administration Anxiety Enoxaparin Sodium 40 mg 04/22/20 09:00 04/23/20 08:26 Lovenox SC 40 mg 0900 RENZO Administration Sodium Chloride 1,000 mls @ 150 mls/hr 04/21/20 20:00 04/23/20 17:15 Normal Saline 0.9% IV Not Given .Q6H40M RENZO Potassium Chloride 40 meq/ 100 mls @ 50 mls/hr 04/21/20 23:25 04/23/20 06:52 Device IVPB 100 mls ASDIR PRN Administration FOR SERUM K+ 2.5 - 3.5 Magnesium Sulfate 1 gm/ Sodium 102 mls @ 102 mls/hr 04/21/20 23:25 04/23/20 08:26 Chloride IV 102 mls PRN PRN Administration MAG LEVEL 1.4 - 2.0 Potassium Phosphate 9 mmol/ 103 mls @ 25.75 mls/hr 04/21/20 23:25 04/22/20 06 :39 Sodium Chloride IVPB 103 mls ASDIR PRN Administration Phosphate 1.0-1.8 Levothyroxine Sodium 88 mcg 04/22/20 06:00 04/23/20 06:53 Synthroid PO 88 mcg 0600 RENZO Administration Ondansetron HCl 4 mg 04/21/20 19:47 04/23/20 10:37 Zofran IVP 4 mg Q6H PRN Administration Nausea/Vomiting Promethazine HCl 12.5 mg 04/21/20 23:45 04/22/20 14:12 Phenergan SLOW IVP 12.5 mg Q6H PRN Administration Nausea Sodium Chloride 10 ml 04/22/20 09:00 04/23/20 08:28 Flush - Normal Saline IVF 10 ml Q12HR RENZO Administration Vancomycin HCl 250 mg 04/23/20 12:00 04/23/20 17:15 First Vancomycin PO 250 mg Q6HR RENZO Administration - Exam General Appearance: awake alert Eye: anicteric sclera ENT: moist mucosa Neck: supple Heart: RRR Respiratory: CTAB, no rales Gastrointestinal: soft, non-tender, normal bowel sounds Psychiatric: normal affect, normal behavior Hosp A/P - Plan Assessment 1. Clostridium difficile colitis 2. Electrolyte abnormality 3. Dehydration 4. Septic shock, resolved 5. Health care associated pneumonia Plan 1. Clostridium difficile diarrhea -start Florastor and enteral vancomycin 2. Electrolyte abnormality - Replace potassium today 3. Dehydration - continue with IV fluids 4. Septic shock - Resolved, pt is off of pressors. -transfer to medical floor 2. health care associated pneumonia ruled out - Discontinue IV Zosyn/IV vancomycin DVT PPX: Lovenox FULL CODE
[2020-04-23] MEDS: Saccharomyces boulardii 250 MG CAP PO SCH (20:15)
[2020-04-23] MEDS: metroNIDAZOLE 500 MG in Premix Bag 1 BAG IVPB SCH (20:15)
[2020-04-24] MEDS: metroNIDAZOLE 500 MG in Premix Bag 1 BAG IVPB SCH ×3 (05:35→20:29)
[2020-04-24] MEDS: Levothyroxine Sodium 88 MCG TAB PO SCH (05:35)
[2020-04-24] MEDS: Vancomycin HCl 25 MG/ML Oral PO SCH ×4 (05:35→23:17)
[2020-04-24] MEDS: Sodium Chloride 0.9% 1,000 ML IV SCH ×4 (05:48→20:33)
--- NOTE | 2020-04-24 06:45 | CON ---
DATE OF CONSULTATION: 04/23/2020 REASON FOR CONSULTATION: Severe diarrhea and weakness. HISTORY OF PRESENT ILLNESS: Ms. May is a 69-year-old female who was last admitted to this facility 3 weeks ago for Salmonella infection. At that time, she presented with abdominal pain associated nausea, vomiting, and diarrhea. Because of her symptoms and stool studies suggestive of Salmonella, the patient was started on antibiotics with subsequent discharge on levofloxacin 750 mg daily and Florastor probiotics. Her diarrhea actually improved significantly, however, beginning 4 days ago, her stool output increased significantly. She reports having multiple episodes of loose watery stool without any visible blood. She has diffuse pain in the periumbilical area, described as a soreness. She had nausea without vomiting, but had very little oral intake. She did report subjective fever at home. The patient presented to the emergency room [address] finding of pancolitis. She was noted to be profoundly hypotensive with systolic in the 70s. The patient was admitted to the ICU on Levophed and empiric antibiotics with Zosyn. Over the ensuing 24 hours, she rapidly improved and was off pressor. This morning, she was transferred to the medical floor. Currently, she still feels weak. She still has frequent watery stool without blood or mucus. Her abdominal pain has lessened. She has no further nausea or vomiting and is able to tolerate clear liquids. Her stool C diff came back positive. The patient has been started on oral vancomycin. PAST MEDICAL HISTORY: 1. GE reflux disease. 2. Hypothyroidism. 3. History of depression. PAST SURGICAL HISTORY: Include knee replacement and hysterectomy. ALLERGIES: NONE. SOCIAL HISTORY: The patient has no tobacco or alcohol usage except on rare occasion. is an Internal Medicine doctor, who works in [employer] in [place]. FAMILY HISTORY: Negative for any known GI problem, liver disease, or GI malignancy. HOME MEDICATIONS: 1. Florastor 250 mg daily. 2. Levothyroxine 88 mcg daily. 3. Lansoprazole 30 mg daily. 4. Furosemide 20 mg daily. 5. Bupropion 300 mg daily. 6. Lipitor 20 mg at bedtime. 7. Alprazolam 0.5 mg b.i.d. p.r.n. 8. Paroxetine 60 mg daily. REVIEW OF SYSTEMS: Ten-point review of systems did not show any other symptoms other than undetermined weight loss over the last 1 month. No other reported symptoms other than aforementioned. PHYSICAL EXAMINATION: VITAL SIGNS: Temperature is 98.7, blood pressure 115/79, and pulse of 86. GENERAL: She is alert, but very weak, however in no distress. HEENT: Shows anicteric sclerae. Oropharynx is clear and moist. NECK: Supple. CV: Shows normal S1 and S2. Regular rate and rhythm. CHEST: Shows breath sounds. ABDOMEN: Soft, mildly tender, but no guarding or rebound. There is no distention. No tympany. She has active bowel sounds. EXTREMITIES: Shows no edema. LABORATORY DATA: WBCs 13.0, hemoglobin 9.3, platelet count of 178, and MCV of 93. Sodium 136, potassium 3.2, chloride 111, CO2 of 19, creatinine 0.6, and BUN of 4. LFTs are normal. Albumin is 2.4. IMAGING STUDIES: Abdominopelvic CT performed yesterday with contrast showed diffuse colonic wall thickening and pericolonic inflammation. No focal abscess or obstruction. She has distended gallbladder. Microbiology, stool culture no growth at 12 hours. Stool lactoferrin present and elevated. C diff antigen positive and confirmed by PCR. Campylobacter antigen positive, negative Shiga toxin. Blood culture negative x2 at 48 hours. ASSESSMENT: 1. Clostridioides difficile colitis as evidenced by stool study and CT findings. Currently, the patient has significant clinical improvement and is off pressors on the floor. She has been started on oral vancomycin 250 mg q.6 hours. 2. Recent Salmonella infection treated with Levaquin. 3. Positive Campylobacter antigen, likely of no clinical significance and perhaps this is a false positive. The patient has no risk factors for Campylobacter infection since last admission. Clinical symptoms along with the CT finding and stool study are suggestive of Clostridioides difficile infection. RECOMMENDATION: 1. Continue with vancomycin 250 mg p.o. q.i.d. 2. Discontinue Zosyn. 3. Advance diet. 4. Physical therapy to regain strength, stamina, and ambulation. 5. GI will follow closely, no other intervention or diagnostic tests are indicated at the present time. Job ID: [id number]
[2020-04-24] MEDS: Enoxaparin Sodium 40 MG/0.4 ML SYRINGE SC SCH (08:07)
[2020-04-24] MEDS: Famotidine/PF 20 mg/2ml Vial SLOW IVP SCH ×2 (08:08→20:29)
[2020-04-24] MEDS: Bupropion 150 MG XL TAB PO SCH (08:08)
[2020-04-24] MEDS: Saccharomyces boulardii 250 MG CAP PO SCH ×2 (08:08→20:28)
[2020-04-24] MEDS ORDERED: Saccharomyces boulardii 250 MG CAP PO SCH (09:00)
--- NOTE | 2020-04-24 10:38 | PRG ---
DATE OF SERVICE: 04/24/2020 SUBJECTIVE: A 69-year-old female. This morning, she is better. She is still weak, still having diarrhea. OBJECTIVE: VITAL SIGNS: Temperature 98, pulse 79 bp 120/76, respirations of 16 , oxygen 96% on room air, blood pressure has improved to 130/70. CHEST: No wheezing or crackles. CARDIAC: Normal S1, S2. ASSESSMENT: Clostridium difficile colitis; hypertension, resolved. PLAN: At this stageCC NOT MUCH TO ADD,. Continue present Flagyl, vancomycin. Input from GI. Job ID: [id number] [email or web address]
--- NOTE | 2020-04-24 18:27 | PDOC.HOSPP ---
- Subjective Encounter Date: 04/24/20 Encounter Time: 09:40 Subjective: Pt seen for followup re: colitis due to clostridium difficile. Diarrhea still + - Objective Vital Signs & Weight: Vital Signs (12 hours) Temp Pulse Resp BP Pulse Ox 04/24/20 16:20 98.0 F 89 15 134/83 96 04/24/20 11:51 98.0 F 86 16 125/83 93 L 04/24/20 08:00 96 04/24/20 07:40 98.2 F 83 16 113/70 96 Weight Admit Weight 133 lb 13.129 oz Weight 133 lb 13.129 oz Most Recent Monitor Data Heart Rate from ECG 86 NIBP 117/74 NIBP BP-Mean 88 Respiration from ECG 30 SpO2 98 I&O: 04/23/20 04/24/20 04/25/20 06:59 06:59 06:59 Intake Total 66546 3140 Output Total 2617 900 Balance 15473 2240 Result Diagrams: 04/23/20 04:45 04/23/20 04:45 Additional Labs: Labs and MARs reviewed by tx Hospitalist ROS - Review of Systems Cardiovascular: denies: chest pain, palpitations, orthopnea, paroxysmal noc. dyspnea, edema, light headedness, other Gastrointestinal: reports: diarrhea Genitourinary: denies: dysuria, frequency, incontinence, hematuria, retention - Medication Medications: Active Medications Generic Name Dose Route Start Last Admin Trade Name Freq PRN Reason Stop Dose Admin Acetaminophen 650 mg 04/21/20 19:47 04/23/20 21:15 Tylenol PO 650 mg Q4H PRN Administration Headache/Fever/Mild Pain (1-3) Alprazolam 0.5 mg 04/23/20 15:14 04/23/20 15:55 Xanax PO 0.5 mg BIDPRN PRN Administration Anxiety Bupropion HCl 300 mg 04/24/20 09:00 04/24/20 08:08 Wellbutrin Xl PO 300 mg DAILY RENZO Administration Enoxaparin Sodium 40 mg 04/22/20 09:00 04/24/20 08:07 Lovenox SC 40 mg 0900 RENZO Administration Famotidine 20 mg 04/23/20 21:00 04/24/20 08:08 Pepcid SLOW IVP 20 mg Q12HR RENZO Administration Sodium Chloride 1,000 mls @ 150 mls/hr 04/21/20 20:00 04/24/20 13:19 Normal Saline 0.9% IV 1,000 mls .Q6H40M RENZO Administration Potassium Chloride 40 meq/ 100 mls @ 50 mls/hr 04/21/20 23:25 04/23/20 06:52 Device IVPB 100 mls ASDIR PRN Administration FOR SERUM K+ 2.5 - 3.5 Magnesium Sulfate 1 gm/ Sodium 102 mls @ 102 mls/hr 04/21/20 23:25 04/23/20 08:26 Chloride IV 102 mls PRN PRN Administration MAG LEVEL 1.4 - 2.0 Potassium Phosphate 9 mmol/ 103 mls @ 25.75 mls/hr 04/21/20 23:25 04/22/20 06 :39 Sodium Chloride IVPB 103 mls ASDIR PRN Administration Phosphate 1.0-1.8 Metronidazole 500 mg/ Device 100 mls @ 100 mls/hr 04/23/20 22:00 04/24/20 13: 19 IVPB 100 mls Q8HR RENZO Administration Levothyroxine Sodium 88 mcg 04/22/20 06:00 04/24/20 05:35 Synthroid PO 88 mcg 0600 RENZO Administration Ondansetron HCl 4 mg 04/21/20 19:47 04/23/20 10:37 Zofran IVP 4 mg Q6H PRN Administration Nausea/Vomiting Promethazine HCl 12.5 mg 04/21/20 23:45 04/22/20 14:12 Phenergan SLOW IVP 12.5 mg Q6H PRN Administration Nausea Saccharomyces Boulardii 250 mg 04/23/20 21:00 04/24/20 08:08 Florastor PO 250 mg BID RENZO Administration Sodium Chloride 10 ml 04/22/20 09:00 04/24/20 08:09 Flush - Normal Saline IVF 10 ml Q12HR RENZO Administration Vancomycin HCl 250 mg 04/23/20 12:00 04/24/20 17:09 First Vancomycin PO 250 mg Q6HR RENZO Administration - Exam General Appearance: awake alert Eye: anicteric sclera ENT: moist mucosa Neck: supple Heart: RRR Respiratory: CTAB Gastrointestinal: soft, non-tender Extremities: no edema Psychiatric: normal affect, normal behavior Hosp A/P - Plan Assessment 1. Clostridium difficile colitis 2. Electrolyte abnormality 3. Dehydration 4. Septic shock, resolved 5. Health care associated pneumonia Plan 1. Clostridium difficile diarrhea -continue Florastor and enteral vancomycin 2. Electrolyte abnormality - Check labs tomorrow 3. Dehydration - continue IV fluids 4. Septic shock - Resolved 2. health care associated pneumonia ruled out - DVT PPX: Lovenox FULL CODE
[2020-04-24] MEDS: Atorvastatin Calcium 20 MG TAB PO SCH (20:28)
[2020-04-24] MEDS: ALPRAZolam 0.5 MG TAB PO PRN (20:32)
--- NOTE | 2020-04-24 23:02 | PRG ---
DATE OF SERVICE: 04/24/2020 REASON FOR CONSULTATION: Severe diarrhea/Clostridium difficile colitis. SUBJECTIVE: Today, the patient states that she is doing much better when compared to on admission, but does continue to have abdominal discomfort rather than pain. She also states that she has had approximately 4 to 5 semi-solid bowel movements over the last 24 hours with some solidification of her stools. Otherwise, she denies any nausea, vomiting, fevers, chills, hematemesis, melena, or hematochezia. OBJECTIVE: VITAL SIGNS: Temperature 97.9, pulse 88, blood pressure 142/83, respiratory rate 16, and saturating 97% on room air. GENERAL: The patient was lying in bed, in no acute distress. Alert and oriented x4. CARDIOVASCULAR: Regular rate and rhythm. RESPIRATORY: Clear to auscultation bilaterally. ABDOMEN: Normoactive bowel sounds. Soft, nondistended. Tenderness to palpation in the periumbilical region. EXTREMITIES: No cyanosis, clubbing, or edema. LABORATORY DATA: No current studies are available for review. IMAGING DATA: No current studies are available for review. ASSESSMENT AND PLAN: The patient is a 69-year-old female with past medical history of depression, hypothyroidism, gastroesophageal reflux disease, and recently salmonella infection treated with broad-spectrum antibiotics, presenting with septic shock secondary to Clostridium difficile colitis. Clostridium difficile colitis. The patient initially presented with tachycardia and hypotension that required pressure support as part of septic shock related to an infectious pathogen. Stool studies obtained on admission were positive for Clostridium difficile antigen as well as toxin consistent with the infection. Campylobacter antigen was also positive at that time, but other infectious workup was negative. She was subsequently placed on oral vancomycin 250 mg every 6 hours in addition to IV metronidazole and has had significant improvement over the last 24 to 48 hours. At this time, the patient is being adequately treated with the oral vancomycin at 250 mg every 6 hours (which I think is appropriate given the patient's age and severity of her disease on admission). Also given the severity of her disease on admission, the IV metronidazole is not unreasonable, although I would consider discontinuing this on discharge. No treatment is indicated at this time for the Campylobacter positive antigen as it may be covered by the oral vancomycin reaching high enough levels within the gut. RECOMMENDATIONS: 1. Continue oral vancomycin 250 mg four times daily. 2. Continue IV metronidazole 500 mg three times daily until discharge and then discontinue. 3. Continue with probiotic administration. 4. Advance diet as tolerated. At this time, the patient is being adequately treated with oral antibiotics, which she needs to be on for a total duration of therapy of 14 days. We will sign off at this time. Please have the patient follow up in the GI clinic in approximately 2 to 3 weeks for further monitoring. Please call with any questions. Job ID: [id number] MTDD
[2020-04-25] MEDS: Vancomycin HCl 25 MG/ML Oral PO SCH ×3 (05:11→17:04)
[2020-04-25] MEDS: Levothyroxine Sodium 88 MCG TAB PO SCH (05:11)
[2020-04-25] MEDS: metroNIDAZOLE 500 MG in Premix Bag 1 BAG IVPB SCH ×3 (05:13→20:32)
[2020-04-25] MEDS: Sodium Chloride 0.9% 1,000 ML IV SCH ×3 (05:17→16:57)
[2020-04-25 06:33] LABS: #Eosinphils 0.9 thou/uL (0.0-0.7); #Lymphocytes 2.1 thou/uL (1.20-3.40); #Monocytes 0.6 thou/uL (0.11-0.59); #Neutrophils 4.2 thou/uL (1.40-6.50); %Basophils 0.6 % (0.0-1.0); %Eosinophils 11.2 % (0.0-10.0); %Lymphocytes 27.4 % (21.0-51.0); %Monocytes 7.4 % (0.0-10.0); %Neutrophils 53.3 % (42.0-75.0); Hemoglobin 9.8 g/dL (12.0-16.0); Mean Corpuscular HGB CONC 33.1 g/dL (32.0-36.0); Mean Corpuscular Hemoglobin 29.9 pg (27.0-31.0); Mean Corpuscular Volume 90.2 fL (78.0-98.0); Mean Platelet Volume 7.7 fL (7.4-10.4); Platelet Count 216 thou/uL (130-400); RBC Distribution Width 12.8 % (11.5-14.5); Red Blood Cell (RBC) Count 3.29 mill/uL (4.20-5.40); White Blood Cell (WBC) Count 7.8 thou/uL (4.8-10.8)
[2020-04-25 06:56] LABS: Anion Gap 7 mmol/L (10-20); BUN (Urea Nitrogen) 4 mg/dL (9.8-20.1); Calc. Creatinine Clearance 101 mL/min (70-130); Calcium 7.7 mg/dL (7.8-10.44); Carbon Dioxide 27 mmol/L (23-31); Chloride 107 mmol/L (98-107); Estimated GFR-MDRD Greater than 90; Glucose 92 mg/dL (80-115); Potassium 3.1 mmol/L (3.5-5.1); Sodium 138 mmol/L (136-145)
[2020-04-25] MEDS: Famotidine/PF 20 mg/2ml Vial SLOW IVP SCH ×2 (08:37→20:32)
[2020-04-25] MEDS: Saccharomyces boulardii 250 MG CAP PO SCH ×2 (08:37→20:32)
[2020-04-25] MEDS: Bupropion 150 MG XL TAB PO SCH (08:37)
[2020-04-25] MEDS: Enoxaparin Sodium 40 MG/0.4 ML SYRINGE SC SCH (08:41)
[2020-04-25] MEDS: Potassium Chloride 20 MEQ TAB PO SCH ×2 (09:44→12:39)
[2020-04-25] MEDS: Ondansetron PF 4 MG/2 ML Vial IVP PRN (15:19)
--- NOTE | 2020-04-25 18:56 | PDOC.HOSPP ---
- Subjective Encounter Date: 04/25/20 Encounter Time: : Subjective: Pt seen for followup - c. diff infection. Feels better, diarrhea improving. - Objective Vital Signs & Weight: Vital Signs (12 hours) Temp Pulse Resp BP Pulse Ox 04/25/20 08:00 97 04/25/20 07:11 98.2 F 79 17 131/79 97 Weight Admit Weight 133 lb 13.129 oz Weight 133 lb 13.129 oz Most Recent Monitor Data Heart Rate from ECG 86 NIBP 117/74 NIBP BP-Mean 88 Respiration from ECG 30 SpO2 98 I&O: 04/24/20 04/25/20 04/26/20 06:59 06:59 06:59 Intake Total 3140 2080 Output Total 900 Balance 2240 2079 Result Diagrams: 04/25/20 06:01 04/25/20 06:01 Additional Labs: Labs and MARs reviewed by sc Hospitalist ROS - Review of Systems Constitutional: denies: fever, chills, sweats, weakness, malaise Cardiovascular: denies: chest pain, palpitations, paroxysmal noc. dyspnea, edema , light headedness Gastrointestinal: reports: diarrhea - Medication Medications: Active Medications Generic Name Dose Route Start Last Admin Trade Name Freq PRN Reason Stop Dose Admin Acetaminophen 650 mg 04/21/20 19:47 04/23/20 21:15 Tylenol PO 650 mg Q4H PRN Administration Headache/Fever/Mild Pain (1-3) Alprazolam 0.5 mg 04/23/20 15:14 04/24/20 20:32 Xanax PO 0.5 mg BIDPRN PRN Administration Anxiety Atorvastatin Calcium 20 mg 04/24/20 21:00 04/24/20 20:28 Lipitor PO 20 mg HS RENZO Administration Bupropion HCl 300 mg 04/24/20 09:00 04/25/20 08:37 Wellbutrin Xl PO 300 mg DAILY RENZO Administration Enoxaparin Sodium 40 mg 04/22/20 09:00 04/25/20 08:41 Lovenox SC 40 mg 0900 RENZO Administration Famotidine 20 mg 04/23/20 21:00 04/25/20 08:37 Pepcid SLOW IVP 20 mg Q12HR RENZO Administration Sodium Chloride 1,000 mls @ 150 mls/hr 04/21/20 20:00 04/25/20 16:57 Normal Saline 0.9% IV Not Given .Q6H40M RENZO Metronidazole 500 mg/ Device 100 mls @ 100 mls/hr 04/23/20 22:00 04/25/20 12: 39 IVPB 100 mls Q8HR RENZO Administration Levothyroxine Sodium 88 mcg 04/22/20 06:00 04/25/20 05:11 Synthroid PO 88 mcg 0600 RENZO Administration Ondansetron HCl 4 mg 04/21/20 19:47 04/25/20 15:19 Zofran IVP 4 mg Q6H PRN Administration Nausea/Vomiting Promethazine HCl 12.5 mg 04/21/20 23:45 04/22/20 14:12 Phenergan SLOW IVP 12.5 mg Q6H PRN Administration Nausea Saccharomyces Boulardii 250 mg 04/23/20 21:00 04/25/20 08:37 Florastor PO 250 mg BID RENZO Administration Sodium Chloride 10 ml 04/22/20 09:00 04/25/20 08:41 Flush - Normal Saline IVF Not Given Q12HR [facility] Vancomycin HCl 250 mg 04/23/20 12:00 04/25/20 17:04 First Vancomycin PO 250 mg Q6HR RENZO Administration - Exam General Appearance: awake alert Eye: anicteric sclera ENT: moist mucosa Neck: supple Heart: RRR Respiratory: CTAB, no rales Gastrointestinal: soft, non-tender Skin: no rashes Psychiatric: normal affect, normal behavior Hosp A/P - Plan Assessment 1. Clostridium difficile colitis 2. Electrolyte abnormality 3. Dehydration, resolved 4. Septic shock, resolved 5. Health care associated pneumonia Plan 1. Clostridium difficile diarrhea -continue Florastor and enteral vancomycin; IV metronidazole added while she is inpatient -pt is clinically improving 2. Electrolyte abnormality - replace potassium 3. Dehydration - resolved 4. Septic shock - Resolved 2. health care associated pneumonia ruled out - DVT PPX: Lovenox FULL CODE
[2020-04-25] MEDS: Atorvastatin Calcium 20 MG TAB PO SCH (20:32)
[2020-04-25] MEDS: ALPRAZolam 0.5 MG TAB PO PRN (20:37)
[2020-04-26] MEDS: Vancomycin HCl 25 MG/ML Oral PO SCH ×2 (00:07→05:30)
[2020-04-26] MEDS: Levothyroxine Sodium 88 MCG TAB PO SCH (05:30)
[2020-04-26] MEDS: metroNIDAZOLE 500 MG in Premix Bag 1 BAG IVPB SCH (05:30)
[2020-04-26 05:51] LABS: #Basophils 0.1 thou/uL (0.0-0.2); #Eosinphils 0.9 thou/uL (0.0-0.7); #Lymphocytes 2.6 thou/uL (1.20-3.40); #Neutrophils 5.1 thou/uL (1.40-6.50); %Basophils 0.9 % (0.0-1.0); %Eosinophils 9.6 % (0.0-10.0); %Lymphocytes 27.1 % (21.0-51.0); %Monocytes 10.2 % (0.0-10.0); %Neutrophils 52.4 % (42.0-75.0); Mean Corpuscular HGB CONC 33.3 g/dL (32.0-36.0); Mean Corpuscular Volume 90.1 fL (78.0-98.0); Mean Platelet Volume 7.3 fL (7.4-10.4); Platelet Count 280 thou/uL (130-400); Red Blood Cell (RBC) Count 3.67 mill/uL (4.20-5.40); White Blood Cell (WBC) Count 9.7 thou/uL (4.8-10.8)
[2020-04-26 06:18] LABS: Anion Gap 11 mmol/L (10-20); BUN (Urea Nitrogen) 4 mg/dL (9.8-20.1); Calc. Creatinine Clearance 87 mL/min (70-130); Carbon Dioxide 27 mmol/L (23-31); Chloride 107 mmol/L (98-107); Estimated GFR-MDRD Greater than 90; Glucose 96 mg/dL (80-115); Potassium 3.8 mmol/L (3.5-5.1); Sodium 141 mmol/L (136-145)
[2020-04-26] MEDS: Saccharomyces boulardii 250 MG CAP PO SCH (08:28)
[2020-04-26] MEDS: Bupropion 150 MG XL TAB PO SCH (08:28)
[2020-04-26] MEDS: Famotidine/PF 20 mg/2ml Vial SLOW IVP SCH (08:28)
[2020-04-26] MEDS: Enoxaparin Sodium 40 MG/0.4 ML SYRINGE SC SCH (08:28)
[2020-04-26 09:03] VITALS: BP 120/78; TEMP 98.5
--- NOTE | 2020-04-26 12:30 | EKG ---
Test Reason : CARDIAC R/O Blood Pressure : / mmHG Vent. Rate : 104 BPM Atrial Rate : 104 BPM P-R Int : 124 ms QRS Dur : 090 ms QT Int : 356 ms P-R-T Axes : 077 030 043 degrees QTc Int : 468 ms Sinus tachycardia Nonspecific ST and T wave abnormality Abnormal ECG No change from 03/29/2020 Confirmed by RHYS TAY DO ([id number]), assistant production editor TRAVIS LOZANO ([id number]) on 04/26/2020 12:30:08 PM Referred By: Confirmed By:RHYS TAY DO
--- NOTE | 2020-04-28 14:01 | DIS ---
DATE OF ADMISSION: 04/21/2020 DATE OF DISCHARGE: 04/26/2020 DISCHARGE DIAGNOSES: 1. Septic shock secondary to pneumonia vs Campylobacte/Clostridium difficile colitis. 2. Leukocytosis. 3. Anemia. 4. Hypokalemia. 5. Elevated troponin. CONSULTATIONS: 1. Dr. Gonzalez Shelton with GI. 2. Dr. Barry Cartagena with Infectious Disease. 3. Dr. Josef Levy with Critical Care. BRIEF HISTORY OF PRESENT ILLNESS: This is a 69-year-old female with a past medical history of depression, who presented to the emergency room with fevers, chills, malaise, nausea, dry heaving. The patient states that she was recently discharged with salmonella. She reported decreased oral intake and feeling dehydrated. The patient was noted to be hypotensive. Her x-ray showed a possible infiltrate. She was noted to have a leukocytosis of 14 with bandemia, hypokalemia of 2.9, and hypomagnesemia of 1.5. She was also hypotensive. She was initially started on broad-spectrum antibiotics and pressors. She was admitted for further workup. HOSPITAL COURSE: 1. Septic shock secondary to C diff/Campylobacter colitis: The patient had a chest x-ray which showed left lower lobe pneumonia. She was started on IV vancomycin and zosyn. She had a CT scan of her abdomen and pelvis which showed diffuse colitis, possibly pseudomembranous and gallbladder distension. Due to persistent diarrhea, stool cultures were checked which were positive for C diff and campylobacter. IV vanc and zosyn were discontinued on 04/23. She was then started on oral vancomycin and IV flagyl with improvement. She was weaned off pressors. Diarrhea resolved at the time of discharge. She was given oral vancomycin therapy for additional 6 days to complete a 10-day course. 2. Gallbladder distention: The patient denied any abdominal pain, nausea, or vomiting. She had no gallstones. This can be monitored as an outpatient. 3. Fluid retention: The patient reports taking Lasix at home. This was discontinued due to recurrent hypomagnesemia and hypokalemia while in the hospital. 4. Hypokalemia: The patient's potassium was 3.1 on 04/25 which resolved to 3.8 on the day of discharge. 5. Leukocytosis: The patient had a white count of 13.0, which resolved to 9.7 on discharge. DISCHARGE PHYSICAL EXAMINATION: VITAL SIGNS: Temperature 98.2, heart rate 87, respiratory rate 17, O2 saturation 97% on room air, blood pressure 120/78. GENERAL: The patient is alert, awake, and oriented x3. CVS: Regular rate and rhythm with no murmurs, rubs, or gallops. LUNGS: Clear to auscultation bilaterally. ABDOMEN: Positive bowel sounds, soft, nontender, and nondistended. EXTREMITIES: No edema. PERTINENT LABORATORY DATA: CBC on 04/26: White count 9.7, hemoglobin 11.0, hematocrit 33.1, platelet count of 280. BMP on 04/26: Unremarkable. UA: Normal. IMAGING STUDIES: Abdominal ultrasound on 04/21: Gallbladder distention with small amount of sludge. Chest x-ray on 04/21: New airspace opacity in the left lower lobe suspicious for pneumonia. CT of abdomen and pelvis on 04/22: Diffuse and prominent colonic wall thickening with pericolonic inflammatory changes. Findings may attribute to pseudomembranous colitis. Distention of the gallbladder. Small amount of ascites. Tiny bilateral pleural effusions. Chest x-ray on 04/22: No evidence of acute disease. DISCHARGE CONDITION: Stable. ACTIVITY: As tolerated. DIET: Regular diet. DISCHARGE MEDICATIONS: 1. Vancomycin 125 mg p.o. q.6 hours. 2. Pepcid 20 mg p.o. daily. Discontinued medications: 1. Lasix. 2. Protonix. All other home medications were resumed. Please refer to discharge worksheet. DISCHARGE INSTRUCTIONS: The patient to follow up with PCP in a week. Continue vancomycin for 6 additional days. Get a repeat chest x-ray in 6 weeks to follow up resolution of pneumonia. Job ID: [id number] MTDD
== END 2020-04-26 12:05 | disposition home or self-care (01) | DRG 871 ==
LOC: ERS 13:23 → CCU 17:51 → T4-B 04-23 12:43 → 2NO 04-23 12:44 → T4-B 04-23 12:50
PROVIDERS: ADMIT Internal Medicine; ATTEND Internal Medicine
DX: A41.9 Sepsis, unspecified organism (principal); J18.9 Pneumonia, unspecified organism; R65.21 Severe sepsis with septic shock; Z20.828 Contact with and (suspected) exposure to other viral communicable diseases; A04.72 Enterocolitis due to Clostridium difficile, not specified as recurrent; I10 Essential (primary) hypertension; E03.9 Hypothyroidism, unspecified; Z96.659 Presence of unspecified artificial knee joint; E87.6 Hypokalemia; E83.42 Hypomagnesemia; F32.9 Major depressive disorder, single episode, unspecified; E86.0 Dehydration; K21.9 Gastro-esophageal reflux disease without esophagitis; Y95 Nosocomial condition; Z98.1 Arthrodesis status; Z90.710 Acquired absence of both cervix and uterus; Z79.899 Other long term (current) drug therapy
CPT/HCPCS: 36415; 36556; 71045; 74177; 76705; 80048; 80053; 80202; 81003; 82533; 83605; 83630; 83690; 83735; 84100; 84484; 85007; 85025; 85027; 86140; 87040; 87045; 87046; 87324; 87427; 87449; 87493; 93005; 93010; 96361; 96365; 96366; 96367; 96368; 96375; 96376; J1650; J1956; J2405; J2543; J2550; J3010; J3370; J3475; J3480; J3490; J7050; Q9967; S0028

== ENCOUNTER 2020-09-16 11:31 | Outpatient (CLI) | payer BC ==
--- NOTE | 2020-09-16 13:50 | RAD ---
CERVICAL SPINE TWO VIEWS: 09/16/20 HISTORY: Cervical radiculopathy. FINDINGS/IMPRESSION: There are postop changes of anterior spinal fusion with plate and screws at C4-C5-C6-C7 levels in goo d position and alignment. A large osteophyte is present at C3 level. No acute fracture, subluxation o r bony destruction is seen. POS: AH
== END 2020-09-16 11:32 | disposition home or self-care (01) ==
LOC: BICRAD 11:31
PROVIDERS: ATTEND Internal Medicine
DX: M54.12 Radiculopathy, cervical region (principal); Z98.1 Arthrodesis status; M25.78 Osteophyte, vertebrae
CPT/HCPCS: 72040

== ENCOUNTER 2020-09-26 08:51 | Outpatient (CLI) | payer BC ==
--- NOTE | 2020-09-26 11:14 | MRI ---
EXAM: Lumbar spine MRI without contrast. HISTORY: Hyperreflexia lower extremity low back pain radiating down left leg COMPARISON: None FINDINGS: Multiplanar, multisequence MRI examination of the lumbar spine is performed. The conus medullaris region appears unremarkable. Mixed including some heterogeneous type I endplate changes at L1-L2 and L2-L3. Generalized discogenic degenerative change. T12-L1 disc level: Very mild thinning of the lateral recesses. L1-L2 disc level: Bilateral recess mild stenosis slightly worse on the left side. L2-L3 disc level: Moderate central canal and bilateral recess and foraminal stenosis. L3-L4 disc level: Moderate lateral recess and bilateral foraminal stenosis with very mild central can al narrowing. L4-L5 disc level: Grade 2 anterolisthesis of L4 and L5 with very severe central canal and lateral rec ess stenosis and moderate to severe bilateral foraminal stenosis. L5-S1 disc level: Moderate central canal and lateral recess and foraminal stenosis. IMPRESSION: Multilevel variable severity up to severe canal, lateral recess, and foraminal stenosis most marked a t L4-L5 with associated grade 1 anterolisthesis.
--- NOTE | 2020-09-26 11:31 | MRI ---
MRI CERVICAL SPINE: DATE: 09/26/2020. PROVIDED CLINICAL HISTORY: Cervical radiculopathy. FINDINGS: Evaluation is markedly limited due to patient motion on the axial sequences. Evaluation is further limited by metallic susceptibility artifact from cervical postoperative change. Changes of ACDF from C4 through C7 are demonstrated, better visualized on radiographs of 09/16/2020 . There is grade I anterolisthesis of C7 on T1. Cervical alignment appears otherwise normal. There is prominent disk space height loss and a broad-based disk-osteophyte complex at C3-4 producing prominent central canal stenosis, without evidence for cord deformity or cord signal alteration. No additional high-grade canal stenosis is evident. The foramina are insufficiently visualized on the axial images for adequate evaluation. There is severe facet arthrosis left of midline at C3-4 and mi ld right of midline at C3-4. There is likely severe left foraminal narrowing at this level and possi shyanne right moderate-severe narrowing at this level. The visualized posterior fossa, cervicomedullary junction, and cervical spine cord demonstrate a alyson sly normal appearance. Regional marrow signal unaffected by metallic susceptibility artifact appears normal. IMPRESSION: Limited study as described above, with evidence for prominent central canal stenosis at C3-4 and prob able bilateral foraminal narrowing at that level. POS: AH
== END 2020-09-26 08:52 | disposition home or self-care (01) ==
LOC: TBSIIMAG 08:51
PROVIDERS: ATTEND Internal Medicine
DX: M54.12 Radiculopathy, cervical region (principal); R29.2 Abnormal reflex; M48.061 Spinal stenosis, lumbar region without neurogenic claudication; M43.16 Spondylolisthesis, lumbar region; M48.02 Spinal stenosis, cervical region
CPT/HCPCS: 72141; 72148

== ENCOUNTER 2020-12-09 13:05 | Outpatient (CLI) | payer BC ==
[2020-12-10 07:41] LABS: SARS-CoV-2 PCR by NAA Not Detected (NotDetected)
--- NOTE | 2020-12-11 13:14 | EKG ---
Test Reason : Blood Pressure : / mmHG Vent. Rate : 071 BPM Atrial Rate : 071 BPM P-R Int : 136 ms QRS Dur : 092 ms QT Int : 430 ms P-R-T Axes : 064 050 064 degrees QTc Int : 467 ms Normal sinus rhythm Normal ECG No previous ECGs available Confirmed by DR. Scott GRIFFITH ([id number]) on 12/11/2020 1:14:20 PM Referred By: DORY Confirmed By:DR. Scott GRIFFITH
== END 2020-12-09 13:06 | disposition home or self-care (01) ==
LOC: LABBT 13:05
PROVIDERS: ATTEND Neurological Surgery
DX: Z01.818 Encounter for other preprocedural examination (principal); M48.02 Spinal stenosis, cervical region; G95.9 Disease of spinal cord, unspecified; Z20.822 Contact with and (suspected) exposure to COVID-19
CPT/HCPCS: 87635; 93005; 93010; U0003; U0005

== ENCOUNTER 2020-12-12 06:23 | Day surgery (SDC) | payer BC ==
[2020-12-10 11:36] VITALS: BMI 21.6
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
[2020-12-12] MEDS ORDERED: Thrombin 5000 UNITS/5 ML VIAL ONE (06:52)
[2020-12-12 07:16] LABS: Anion Gap 13 mmol/L (10-20); BUN (Urea Nitrogen) 11 mg/dL (9.8-20.1); Calc. Creatinine Clearance 67 mL/min (70-130); Calcium 8.7 mg/dL (7.8-10.44); Carbon Dioxide 27 mmol/L (23-31); Chloride 104 mmol/L (98-107); Glucose 86 mg/dL (80-115); Potassium 4.2 mmol/L (3.5-5.1); Sodium 140 mmol/L (136-145)
[2020-12-12] MEDS ORDERED: Fentanyl 100 MCG/2 ML VIAL ONE ×3 (07:50→10:44)
[2020-12-12] MEDS ORDERED: Famotidine 20 MG TAB ONE (07:50)
[2020-12-12] MEDS ORDERED: Famotidine/PF 20 mg/2ml Vial ONE (07:51)
--- NOTE | 2020-12-12 10:01 | OP ---
DATE OF PROCEDURE: 12/12/2020 HEALTH INSURANCE SPECIALIST: Lavelle Zabala PA-C INDICATION: Prevent neurologic decline. DIAGNOSES: cervical spondylotic myelopathy, cervical stenosis C3-C4. ANESTHESIA: General. PROCEDURE PERFORMED: C3-C4 anterior cervical discectomy and fusion. DESCRIPTION OF PROCEDURE: The patient was brought into the operating room and placed under general anesthesia. She was placed on table in a supine position. A transverse incision was planned over the lateral aspect of the neck on the right. This was above a previous incision from a prior multilevel ACDF. After prepping and draping and after an appropriate preoperative pause, the incision was created. The underlying platysma muscle was identified and incised. A blunt tissue plane anterior to the sternocleidomastoid muscle was used to gain access to the prevertebral space. Self-retaining retractors were placed. The disk osteophyte complex was identified anteriorly just above the plate and was removed using a rongeur. The C3-C4 disk space was identified, where discectomy was performed with removal of anterior and posterior osteophytes in order to decompress the exiting nerve roots, but also the underlying thecal sac posteriorly. After completing the decompression, a 6-mm lordotic PEEK cage packed with allograft and autograft material was placed within the interbody space. A C-arm image was obtained to confirm appropriate placement. The wound was then irrigated. Hemostasis was maintained throughout. The wound was then closed in anatomic layers, and a pressure dressing was applied. There were no known procedural complications. Job ID: [id number]
[2020-12-12] MEDS ORDERED: Ondansetron PF 4 MG/2 ML Vial ONE (11:16)
[2020-12-12] MEDS ORDERED: Dexamethasone 20 MG/5 ML VIAL ONE (11:16)
[2020-12-12] MEDS ORDERED: PROPOFOL 200 MG/20 ML VIAL ONE (11:16)
[2020-12-12] MEDS ORDERED: Lidocaine 1% PF 5 ML VIAL ONE (11:16)
[2020-12-12] MEDS ORDERED: Glycopyrrolate 0.2 MG/ML 5 ML SYRINGE ONE (11:16)
[2020-12-12] MEDS ORDERED: Rocuronium Bromide 10 MG/ML (10ML VIAL) ONE (11:16)
[2020-12-12] MEDS ORDERED: HYDROcodone/Acetaminophen 5/325 mg Tablet ONE (13:25)
== END 2020-12-12 14:20 | disposition home or self-care (01) ==
LOC: SDC 06:23
PROVIDERS: ATTEND Neurological Surgery
PROC: 0RG10A0 Fusion of Cervical Vertebral Joint with Interbody Fusion Device, Anterior Approach, Anterior Column, Open Approach (ICD-10-PCS; principal; 2020-12-12)
PROC: 0RT30ZZ Resection of Cervical Vertebral Disc, Open Approach (ICD-10-PCS; principal; 2020-12-12)
DX: M47.12 Other spondylosis with myelopathy, cervical region (principal); M48.02 Spinal stenosis, cervical region; F41.9 Anxiety disorder, unspecified; F32.9 Major depressive disorder, single episode, unspecified; Z79.899 Other long term (current) drug therapy; Z96.653 Presence of artificial knee joint, bilateral
CPT/HCPCS: 36415; 76000; 80048; C1713; C1776; J0690; J3010; S0028

== ENCOUNTER 2021-06-25 | Outpatient (CLI) | payer BC | END 2021-06-25 13:29 | disposition home or self-care (01) | DX: Z12.31 Encounter for screening mammogram for malignant neoplasm of breast (principal); Z13.820 Encounter for screening for osteoporosis; M25.512 Pain in left shoulder; M85.851 Other specified disorders of bone density and structure, right thigh; M85.852 Other specified disorders of bone density and structure, left thigh; Z78.0 Asymptomatic menopausal state; Z85.828 Personal history of other malignant neoplasm of skin | CPT/HCPCS: 77063; 77067; 77080 ==

== ENCOUNTER 2022-05-12 09:37 | Outpatient (CLI) | payer BC | END 2022-05-12 09:38 | disposition home or self-care (01) | LOC: BICMRI 09:37 | PROVIDERS: ATTEND Internal Medicine | DX: M25.511 Pain in right shoulder (principal); M19.011 Primary osteoarthritis, right shoulder; M62.521 Muscle wasting and atrophy, not elsewhere classified, right upper arm; S46.011A Strain of muscle(s) and tendon(s) of the rotator cuff of right shoulder, initial encounter; M25.811 Other specified joint disorders, right shoulder ==

== ENCOUNTER 2022-06-28 10:22 | Outpatient (CLI) | payer MEDICARE | END 2022-06-28 10:23 | disposition home or self-care (01) | LOC: BICMAMMO 10:22 | PROVIDERS: ATTEND Internal Medicine | DX: Z12.31 Encounter for screening mammogram for malignant neoplasm of breast (principal); Z85.828 Personal history of other malignant neoplasm of skin; Z80.3 Family history of malignant neoplasm of breast | CPT/HCPCS: 77063; 77067 ==

== ENCOUNTER 2022-09-20 09:39 | Outpatient (CLI) | payer MEDICARE | END 2022-09-20 09:40 | disposition home or self-care (01) | LOC: NM 09:39 | PROVIDERS: ATTEND Orthopaedic Surgery | DX: Z47.1 Aftercare following joint replacement surgery (principal); Z96.651 Presence of right artificial knee joint; R94.8 Abnormal results of function studies of other organs and systems | CPT/HCPCS: 78315; A9503 ==

== ENCOUNTER 2023-07-20 12:57 | Outpatient (CLI) | payer OTHER | END 2023-07-20 12:58 | disposition home or self-care (01) | LOC: BICMAMMO 12:57 | PROVIDERS: ATTEND Internal Medicine | DX: Z12.31 Encounter for screening mammogram for malignant neoplasm of breast (principal); Z80.3 Family history of malignant neoplasm of breast; Z85.828 Personal history of other malignant neoplasm of skin | CPT/HCPCS: 77063; 77067 ==

== ENCOUNTER 2023-10-12 10:56 | Outpatient (CLI) | payer OTHER | END 2023-10-12 10:57 | disposition home or self-care (01) | LOC: BICMAMMO 10:56 | PROVIDERS: ATTEND Internal Medicine | DX: Z13.820 Encounter for screening for osteoporosis (principal); M85.852 Other specified disorders of bone density and structure, left thigh; M85.851 Other specified disorders of bone density and structure, right thigh; Z78.0 Asymptomatic menopausal state; M81.0 Age-related osteoporosis without current pathological fracture | CPT/HCPCS: 77080 ==

== ENCOUNTER 2023-12-16 13:40 | Outpatient (CLI) | payer OTHER ==
[2023-12-16 15:47] LABS: Anion Gap 15 mmol/L (10-20); BUN (Urea Nitrogen) 16 mg/dL (9.8-20.1); Calc. Creatinine Clearance 0 mL/min (70-130); Carbon Dioxide 26 mmol/L (23-31); Chloride 101 mmol/L (98-107); Estimated GFR 85; Glucose 131 mg/dL (83-110); Potassium 4.2 mmol/L (3.5-5.1); Sodium 138 mmol/L (136-145)
== END 2023-12-16 13:41 | disposition home or self-care (01) ==
LOC: LABBT 13:40
PROVIDERS: ATTEND Neurological Surgery
DX: Z01.818 Encounter for other preprocedural examination (principal); M43.16 Spondylolisthesis, lumbar region; M48.061 Spinal stenosis, lumbar region without neurogenic claudication
CPT/HCPCS: 80048; 93005; 93010

== ENCOUNTER 2023-12-23 05:34 | Day surgery (SDC) | payer OTHER ==
[2023-12-22 09:19] VITALS: BMI 23.3
[2023-12-23] MEDS ORDERED: Bupivacaine PF 0.5% 30 ML VIAL ONE (06:41)
[2023-12-23] MEDS ORDERED: Thrombin 5000 UNITS/5 ML VIAL ONE (06:41)
[2023-12-23] MEDS ORDERED: EPINEPHrine 1 MG/ML VIAL ONE (06:41)
[2023-12-23] MEDS ORDERED: Sodium Chloride 0.9% 100 ML ONE ×2 (06:50→14:19)
[2023-12-23] MEDS ORDERED: CEFAZOLIN 2 GM VIAL ONE ×2 (06:50→14:19)
[2023-12-23] MEDS ORDERED: Famotidine/PF 20 mg/2ml Vial ONE (06:53)
[2023-12-23] MEDS ORDERED: Scopolamine 1 mg/72 hour Patch ONE (06:53)
[2023-12-23] MEDS ORDERED: HYDROmorphone 0.5 MG/0.5 ML SYRINGE ONE ×3 (06:54→10:22)
[2023-12-23] MEDS ORDERED: Dexamethasone 20 MG/5 ML VIAL ONE (06:58)
[2023-12-23] MEDS ORDERED: fentaNYL 50 mcg/mL 1 mL Vial ONE (06:58)
[2023-12-23] MEDS ORDERED: Rocuronium Bromide 10 MG/ML (10ML VIAL) ONE (06:58)
[2023-12-23] MEDS ORDERED: Ondansetron PF 4 MG/2 ML Vial ONE (06:58)
[2023-12-23] MEDS ORDERED: SUGAMMADEX SODIUM 200 MG/2 ML VIAL ONE (06:58)
[2023-12-23] MEDS ORDERED: PHENYLEPHRINE-NS 100 MCG/ML 10 ML SYRINGE ONE (06:58)
[2023-12-23] MEDS ORDERED: Lidocaine 1% PF 5 ML VIAL ONE (06:58)
[2023-12-23] MEDS ORDERED: PROPOFOL 20 ML ONE (06:58)
[2023-12-23] MEDS ORDERED: Midazolam HCl 2 mg/2 ml Vial ONE (06:59)
[2023-12-23] MEDS ORDERED: ePHEDrine Sulfate 50 MG/10 ML VIAL ONE (07:50)
[2023-12-23] MEDS ORDERED: Cyclobenzaprine 10 MG TAB ONE (10:37)
[2023-12-23] MEDS ORDERED: HYDROcodone/Acetaminophen 5/325 mg Tablet ONE (16:41)
== END 2023-12-23 17:57 | disposition home or self-care (01) ==
LOC: SDC 05:34
PROVIDERS: ATTEND Neurological Surgery
PROC: 0SG00K1 Fusion of Lumbar Vertebral Joint with Nonautologous Tissue Substitute, Posterior Approach, Posterior Column, Open Approach (ICD-10-PCS; principal; 2023-12-23)
DX: M48.062 Spinal stenosis, lumbar region with neurogenic claudication (principal); M54.16 Radiculopathy, lumbar region; M43.16 Spondylolisthesis, lumbar region; F41.9 Anxiety disorder, unspecified; F32.A Depression, unspecified; E78.5 Hyperlipidemia, unspecified; K21.9 Gastro-esophageal reflux disease without esophagitis; E03.9 Hypothyroidism, unspecified; M19.90 Unspecified osteoarthritis, unspecified site; Z79.890 Hormone replacement therapy; Z79.899 Other long term (current) drug therapy; Z90.710 Acquired absence of both cervix and uterus; Z90.89 Acquired absence of other organs; Z96.653 Presence of artificial knee joint, bilateral; Z96.611 Presence of right artificial shoulder joint; Z98.890 Other specified postprocedural states; Z88.1 Allergy status to other antibiotic agents; Z88.8 Allergy status to other drugs, medicaments and biological substances
CPT/HCPCS: 20930; 20936; 22612; 22840; 63047; C1713 ×3; C1889 ×3; J0171; J3010; J0665; J1100; J1170; J2250; J2405; J2704; J3490; S0028

== ENCOUNTER 2024-07-25 15:17 | Outpatient (CLI) | payer OTHER | END 2024-07-25 15:18 | disposition home or self-care (01) | LOC: BICULT 15:17 | PROVIDERS: ATTEND Internal Medicine | DX: E04.1 Nontoxic single thyroid nodule (principal) | CPT/HCPCS: 76536 ==

== ENCOUNTER 2025-07-25 09:27 | Outpatient (CLI) | payer OTHER | END 2025-07-25 09:28 | disposition home or self-care (01) | LOC: BICMAMMO 09:27 | PROVIDERS: ATTEND Internal Medicine | DX: Z12.31 Encounter for screening mammogram for malignant neoplasm of breast (principal); Z80.3 Family history of malignant neoplasm of breast; Z85.828 Personal history of other malignant neoplasm of skin | CPT/HCPCS: 77063; 77067 ==

== ENCOUNTER 2025-08-19 12:42 | Outpatient (CLI) | payer OTHER | END 2025-08-19 12:43 | disposition home or self-care (01) | LOC: BICMAMMO 12:42 | PROVIDERS: ATTEND Internal Medicine | DX: Z78.0 Asymptomatic menopausal state (principal); M85.851 Other specified disorders of bone density and structure, right thigh; M85.852 Other specified disorders of bone density and structure, left thigh | CPT/HCPCS: 77080 ==